=== PATIENT | female | born 1935 | race Caucasian/White ===

== ENCOUNTER 2019-09-19 09:17 | Emergency (ER) | payer MEDICARE, SELFPAY ==
[2019-09-19 09:23] VITALS: BP 145/104; PULSE 84; RESP 18; TEMP 36.6; O2SAT 97; BMI 18.6
[2019-09-19 09:32] VITALS: BP 179/105; PULSE 93; RESP 18; O2SAT 98
--- NOTE | 2019-09-19 09:34 | W.ED.BACK ---
HPI - Back Pain/Injury General: Chief Complaint: Back Pain/Injury Stated Complaint: back pain/post fall 10days ago Time Seen by Provider: 09/19/19 09:18 Source: patient Mode of arrival: EMS Limitations: no limitations History of Present Illness: HPI Narrative: Patient is an 84-year-old female who presents to ED today with complaints of lower back and right hip pain. According to EMS report patient 10 days ago sat down really hard onto the toilet and began having pain in her lower back and right hip. She reportedly had continued to be ambulatory with the help of a walker but EMS states today she was no longer able to ambulate. Patient has home health that has been caring for patient. Patient tells me she has not had any new injury or trauma since the initial fall. She denies numbness, tingling, loss of sensation to her legs. She denies any other complaints at this time. MD elicited complaint: back pain Pertinent past history: recent trauma Onset (ago): day(s) Timing: constant Severity: severe Similar Symptoms Previously: No Location: lumbar spine and right lower back (R hip) Radiation: none Exacerbating factors: movement and walking Relieving factors: none Associated symptoms: Reports no associated symptoms; Deny chills, fatigue or fever(s) Work related injury: No Review of Systems Const: Denies: fever(s), chills, body aches, fatigue or malaise Card: Denies: chest pain, palpitations, swelling of feet/ankles or lightheadedness Resp: Denies: dyspnea, productive cough, non-productive cough or chest congestion : Denies: flank pain Musc: Reports: back pain, extremity pain (R LE) and joint pain (R hip); Denies: neck pain Neuro: Denies: numbness in extremities, weakness in extremities or sensory changes Physical Exam Const: COMMON NORMALS: average body habitus, patient oriented x3, healthy appearing, alert and well nourished GENERAL APPEARANCE: cooperative and in distress (appears uncomfortable ) HENMT: COMMON NORMALS: normocephalic and atraumatic HEAD & SCALP: normocephalic and atraumatic Chest: COMMONS NORMALS: normal inspection of the chest and normal palpation of entire chest wall Resp: COMMON NORMALS: normal respiratory effort and clear to auscultation bilaterally AUSCULTATION: clear to auscultation bilaterally Cardio: COMMON NORMALS: regular rate and regular rhythm RATE: regular rate RHYTHM: regular rhythm Back/Pelvis: THORACIC SPINE/UPPER BACK: Yes normal to inspection, No thoracic spinal tenderness and No paraspinal muscle tenderness LUMBAR SPINE/LOWER BACK: Yes pain with ROM and Yes lumbar spinal tenderness (mid to lower L spine) SACROILIAC JOINTS: Yes SI joint(s) abnormal (TTP R SI) Extremity: COMMON NORMALS: full ROM, capillary refill normal, no joint enlargement, no clubbing, cyanosis or edema, no calf tenderness and no pedal edema GENERAL: Yes normal exam except as noted Neuro: COMMON NORMALS: patient oriented x3, moves all extremities, no focal motor deficits and no sensory deficits noted SENSORIUM/ORIENTATION: Yes alert GAIT: Yes Unable to assess gait Skin: COMMON NORMALS: no rashes or lesions noted GENERAL SKIN EXAM: no rashes or lesions noted Course Vital Signs: Vital signs: Vital Signs Temperature 98 F 09/19/19 09:23 Pulse Rate 76 09/19/19 11:09 Respiratory Rate 18 09/19/19 11:09 Blood Pressure 141/75 09/19/19 11:09 Pulse Oximetry 100 09/19/19 11:09 MDM - Back Pain/Injury MDM Narrative: Medical decision making narrative: Pt reports pain improved. She will be fitted for TLSO brace by PT. Patient will be discharged home with pain meds and recommended she followup with PCP. Medical Records: Medical records narrative: Patient feeling better with pain medications given here. On patient's imaging she has a T12 compression fracture. There was also a questionable S1 fracture although CT reports this could just be bony sclerosis. Spoke with Dr. Cruz who stated patient would just need PCP follow-up. She was fitted for a TLSO brace for physical therapy. She was ambulatory here in the emergency department. Imaging Data^: CT lumbar: Radiologist's impression: [address] [address] [address] Scan Report Signed Patient: Radha Hubbard Unit #: [id number] : 1935 Age/Sex: 84 / F ADM Date: 09/19/19 Loc: ER Room/Bed: Attending Dr: Ordering Provider/Ordering MD: Janiya Pedroza Date of Service: 09/19/19 Procedure(s): CT lumbar spine wo con* [id number] Accession Number(s): [id number] Report Number: [id number] PROCEDURE INFORMATION: Exam: CT Lumbar Spine Without Contrast Exam date and time: 09/19/2019 9:40 AM Age: 84 years old Clinical indication: Injury or trauma; Initial encounter; Blunt trauma (contusions or hematomas); Patient HX: Fall ten days ago. C/O severe low back pain. ; Additional info: Back pain; Trauma; Trouble ambulating TECHNIQUE: Imaging protocol: Computed tomography images of the lumbar spine without contrast. Radiation optimization: All CT scans at this facility use at least one of these dose optimization techniques: automated exposure control; mA and/or kV adjustment per patient size (includes targeted exams where dose is matched to clinical indication); or iterative reconstruction. COMPARISON: No relevant prior studies available. RADIATION DOSE METRICS: Total DLP (mGy-cm): 4401.92 FINDINGS: Vertebrae: No spondylolisthesis No pars defect. Multi-level facet hypertrophic changes Mild compression fracture involving the inferior endplate of the T12 vertebral body both within the anterior and middle columns. Bony sclerosis mid aspect of the S1 segment. Possible minimally displaced fracture. No significant soft tissue swelling. Consider MRI if indicated. Discs/Spinal canal/Neural foramina: Severe diffuse degenerative disc disease reflected as severe decrease in disc space height and anterior endplate osteophytosis. Multilevel annular disc bulge and/or disc protrusions. No appreciable narrowing of the central canal. Soft tissues: See Vertebrae finding. CT/CT lumbar spine wo con* [id number] IMPRESSION: 1. Severe diffuse degenerative disc disease. 2. Mild compression fracture involving the inferior endplate of the T12 vertebral body both within the anterior and middle columns. 3. Bony sclerosis mid aspect of the S1 segment. Possible minimally displaced fracture. No significant soft tissue swelling. Consider MRI if indicated. 4. Multilevel annular disc bulge and/or disc protrusions. No appreciable narrowing of the central canal. Radiation Dose CTDIVOL = (mGy): DLP = 4401.92 (mGy-cm) Dictated By: Fermin Morales MD Signed By: Fermin Morales MD Signed Date/Time: 09/19/19 1034 DD/ 1033 XR R hip/pelvis: Radiologist's impression: [facility] [address] [place] [address] XRay Report Signed Patient: Uma Hubbard #: [id number] : 1936Acct#:[id number] Age/Sex: 84 / FADM Date: 09/19/19 Loc: ERRoom/Bed: Attending Dr: Ordering Provider/Ordering MD: Janiya Pedroza Date of Service: 09/19/19 Procedure(s): XR hip RT 2-3V wo/w pel* [id number] Accession Number(s): [id number] Report Number: [id number] PROCEDURE INFORMATION: Exam: XR Right Hip with Pelvis when Performed Exam date and time: 09/19/2019 10:12 AM Age: 84 years old Clinical indication: Injury or trauma; Fall; Initial encounter; Blunt trauma (contusions or hematomas); Right; Hip; Injury date: Last week; Additional info: Pain/trauma, fall TECHNIQUE: Imaging protocol: XR Right hip with pelvis when performed. Views: 1 view. COMPARISON: No relevant prior studies available. FINDINGS: Bones/joints: Mild degenerative changes within the hip including mild joint space narrowing and early osteophyte formation. No fracture. The trabecular stress markings normal. osseous structures of the pelvis without an acute process. rami are intact. Sacroiliac joints without separation/diastases/fracture. Iliac bones unremarkable/noncontributory Soft tissues: Unremarkable. XR/XR hip RT 2-3V wo/w pel* [id number] IMPRESSION: Mild to moderate degenerative changes within the hip. Dictated By:Fermin Morales MD Signed By:Fermin Morales MDSigned Date/Time:09/19/19 1149 DD/ 1148 Discharge Plan Discharge Patient Disposition: Home, Self-Care Clinical Impression: Closed wedge compression fracture of T12 vertebra Qualifiers: Encounter type: initial encounter Qualified Code(s): S22.080A - Wedge compression fracture of T11-T12 vertebra, initial encounter for closed fracture Condition: Stable Prescriptions: New hydrocodone-acetaminophen 5-325 mg tablet 1 tab PO Q4H PRN (Reason: pain) Qty: 15 RF: 0 No Action latanoprost 0.005 % drops 1 drp ophthalmic (eye) BEDTIME RF: 0 lisinopril 20 mg tablet 20 mg PO DAILY RF: 0 Synthroid 88 mcg tablet 88 mcg PO DAILY RF: 0 Referrals: Makayla Lyle MD [Primary Care Provider] - Activity Restrictions/Additional Instructions: You need to contact Dr. Lyle and set up follow up appointment as soon as possible. You need to wear back brace and use walker at all times. Coding Level of Care Code ED Drapery Maker for [facility]g Fwd Exam Comprehensive
[2019-09-19 09:58] VITALS: RESP 18; O2SAT 100
[2019-09-19] MEDS: morphine 4 mg/mL SDV 1 mL IM (09:58)
[2019-09-19] MEDS: orphenadrine 30 mg/mL Inj 2 mL 60 MG IM (09:59)
[2019-09-19 11:09] VITALS: BP 141/75; PULSE 76; RESP 18; O2SAT 100
[2019-09-19 12:44] VITALS: BP 134/84; PULSE 78; RESP 18; O2SAT 98
== END 2019-09-19 13:24 | disposition home or self-care (01) ==
PROVIDERS: Emergency Provider Physician Assistant; PCP Family Medicine
DX: S22.080A Wedge compression fracture of T11-T12 vertebra, initial encounter for closed fracture (principal); X58.XXXA Exposure to other specified factors, initial encounter
CPT/HCPCS: 12345; 72131; 73502; 96372; 97161; 97760; 99283; J2270; J2360; L0456

== ENCOUNTER 2019-10-15 15:32 | Outpatient (CLI) | payer MEDICARE, SELFPAY ==
--- NOTE | 2019-10-15 15:42 | XR_ITS ---
WS: [id number] SCREENING DEXA SCAN [place] CLINICAL INFORMATION: POST MENOPAUSAL COMPARISON: None. FINDINGS: The L1-L4 bone mineral density measures 1.025 g/cm2. This corresponds to a T score score of -1.3 and Z score of 1.0. Left femoral neck bone mineral density measures 0.730 g/cm2. This corresponds to a T score of -2.2 an d Z score of 0.3. Right femoral neck bone mineral density measures 0.706 g/cm2. This corresponds to a T score -2.4of an d Z score of 0.1. Mean femoral neck bone mineral density measures 0.718 g/cm2. This corresponds to a T score of -2.3 an d Z score of 0.2. XR/XR DEXA axial skeleton* [id number] IMPRESSION: Osteoporosis Patient's FRAX calculated 10 year probability for major osteoporotic fracture i s 30.1 % and osteoporotic hip fracture is 11.9%.
== END 2019-10-15 15:33 | disposition home or self-care (01) ==
PROVIDERS: PCP Family Medicine; Visit Provider Family Medicine
DX: Z78.0 Asymptomatic menopausal state (principal); M81.0 Age-related osteoporosis without current pathological fracture
CPT/HCPCS: 77080

== ENCOUNTER → 2019-11-13 10:17 | Outpatient (BNVA) | payer MEDICARE, SELFPAY | PROVIDERS: PCP Family Medicine; Visit Provider Podiatrist Foot & Ankle Surgery | DX: M79.673 Pain in unspecified foot (principal); M85.872 Other specified disorders of bone density and structure, left ankle and foot; M85.871 Other specified disorders of bone density and structure, right ankle and foot; M19.072 Primary osteoarthritis, left ankle and foot; M19.071 Primary osteoarthritis, right ankle and foot; M20.12 Hallux valgus (acquired), left foot; M20.11 Hallux valgus (acquired), right foot; M20.42 Other hammer toe(s) (acquired), left foot; M20.41 Other hammer toe(s) (acquired), right foot | CPT/HCPCS: 73630 ==

== ENCOUNTER 2020-03-04 15:04 | Emergency (ER) | payer MEDICARE, SELFPAY ==
[2020-03-04 15:15] VITALS: BP 152/82; PULSE 107; RESP 24; TEMP 36.8; O2SAT 97; BMI 19.3
--- NOTE | 2020-03-04 15:33 | ED_ITS ---
HPI - Fall General: Chief Complaint: Fall Stated Complaint: GROUND LEVEL FALL, LUMBAR AND TAILBONE PAIN Time Seen by Provider: 03/04/20 15:26 History of Present Illness: HPI Narrative: 84 year old female in after a fall and some confusion at home. The patient usually lives at home by herself and family (including cousin who is here) check in on her. Today she was found 1/2 dressed on the floor and unable to get up and complaining of back pain. The patient was acting unusual according to the family. Associated symptoms-after fall: Denies abdominal pain or chest pain Review of Systems General: Reports: 10 or more systems reviewed and unremarkable except in HPI and below Const: Denies: fever(s) or chills Card: Denies: chest pain Resp: Denies: dyspnea GI: Denies: abdominal pain Musc: Reports: back pain PFS ED PFSH: Social History Smoking and tobacco status: never smoked Alcohol intake: never Physical Exam Const: COMMON NORMALS: no acute distress and alert EXAM LIMITATIONS: altered mental status HENMT: COMMON NORMALS: normocephalic HEAD & SCALP: normal to inspection and normocephalic Resp: COMMON NORMALS: normal respiratory effort and clear to auscultation bilaterally EFFORT & INSPECTION: Yes able to speak in complete sentences AUSCULTATION: clear to auscultation bilaterally Cardio: COMMON NORMALS: regular rate and regular rhythm RATE: regular rate RHYTHM: regular rhythm GI: COMMON NORMALS: Normal to inspection, nondistended, normoactive bowel sounds present and Soft to palpation INSPECTION: Yes normal to inspection AUSCULTATION: Yes normoactive bowel sounds PALPATION: Yes Soft to palpation : COMMON NORMALS: Yes no CVA tenderness BLADDER/KIDNEY EXAM: Yes no CVA tenderness Back/Pelvis: COMMON NORMALS: no CVA tenderness and thoracic and lumbar spine normal to inspection; negative for no thoracic nor lumbar tenderness Extremity: COMMON NORMALS: normal to inspection GENERAL: Yes normal exam except as noted Neuro: COMMON NORMALS: moves all extremities and no focal motor deficits SENSORIUM/ORIENTATION: Yes alert Skin: COMMON NORMALS: no rashes or lesions noted GENERAL SKIN EXAM: no rashes or lesions noted Course Vital Signs: Vital signs: Vital Signs Temperature 98.5 F 03/04/20 16:19 Pulse Rate 109 H 03/04/20 17:00 Respiratory Rate 18 03/04/20 17:00 Blood Pressure 110/87 03/04/20 17:00 Pulse Oximetry 100 03/04/20 17:00 MDM - Fall MDM Narrative: Medical decision making narrative: 84 year old in with fall complaining of low back pain now acting unusual according to family. Will xray pelvis and lumbar spine. Expand work up to include head CT and other work up for altered mental status. Labs showed some mild dehydration and rhabdo. Fluids given. CT pending if negative will be discharged home. CXR suboptimal study but no acute. Care discussed with family. She will go to her cousins [facility]. Lab Data: Labs: Lab Results 03/04/20 03/04/20 Range/Units 16:37 16:37 WBC 9.7 (4.0-10.0) 10^3/ uL RBC 3.78 L (4.1-5.3) 10^6/u L Hgb 10.0 L (11.5-15.3) g/dL Hct 30.9 L (37.0-47.0) % MCV 81.7 (81-99) fL MCH 26.5 L (28.0-34.0) pg MCHC 32.4 (30.0-36.0) g/dL RDW 13.3 (12.1-15.1) % Plt Count 410 H (130-400) 10^3/c mm MPV 8.8 (7.4-10.4) fL Neut % (Auto) 80.6 % Lymph % (Auto) 12.3 % [place] % (Auto) 5.9 % Eos % (Auto) 0.2 % Baso % (Auto) 0.5 % Neut # (Auto) 7.81 H (1.8-7.7) 10^3/u L Lymph # (Auto) 1.2 (0.8-4.8) 10^3/u L [place] # (Auto) 0.6 (0.2-0.9) 10^3/u L Eos # (Auto) 0.0 (0.0-0.8) 10^3/u L Baso # (Auto) 0.1 (0.0-0.1) 10^3/u L Nucleated RBC % (a uto) 0 % Nucleated RBCs # 0.0 /100WBC Sodium 132 L (136-145) mmol/L Potassium 3.7 (3.5-5.1) mmol/L Chloride 97 L (98-107) mmol/L Carbon Dioxide 24 (22-29) mmol/L Anion Gap 14.7 (5-19) BUN 29 H (8-23) mg/dL Creatinine 0.8 (0.5-0.9) mg/dL GFR Calculation Not Reportable Glucose 137 H (65-115) mg/dL Calculated Osmolal ity 282 L (285-295) mOsm/k g Calcium 9.7 (8.5-10.5) mg/dL Total Bilirubin 0.4 (0.15-1.2) mg/dL AST 25 (0-32) U/L ALT 16 (0-33) U/L Alkaline Phosphata se 84 (35-105) IU/L Creatine Kinase 446 H* (26-192) U/L Total Protein 6.7 (6.6-8.7) g/dL Albumin 3.2 L (3.5-5.2) g/dL Globulin 3.5 (1.3-4.6) g/dL Discharge Plan Discharge Patient Disposition: Home Clinical Impression: Acute dehydration Rhabdomyolysis Qualifiers: Rhabdomyolysis type: traumatic Encounter type: initial encounter Qualified Code(s): T79.6XXA - Traumatic ischemia of muscle, initial encounter Accidental fall Qualifiers: Encounter type: initial encounter Qualified Code(s): W19.XXXA - Unspecified fall, initial encounter Condition: Stable Prescriptions: No Action lisinopril-hydrochlorothiazide 20-12.5 mg tablet 1 tab PO BID RF: 0 latanoprost 0.005 % drops 1 drp ophthalmic (eye) BEDTIME RF: 0 levothyroxine [Synthroid] 88 mcg tablet 88 mcg PO DAILY RF: 0 Discharge Orders: Discharge ED (Routine); Ordered 03/04/20 Ordered By: Mark White Referrals: Makayla Lyle MD [Primary Care Provider] - Discharge Diet: Usual diet Discharge Activity: Resume usual activity Patient Instructions: Fall Prevention for Older Adults (ED) Coding Level of Care Code ED Technical Business Systems Analyst for [facility] Fwd Exam Comprehensive
--- NOTE | 2020-03-04 15:33 | XRR_ITS ---
PROCEDURE INFORMATION: Exam: XR Pelvis Exam date and time: 03/04/2020 3:42 PM Age: 84 years old Clinical indication: Pain and injury or trauma; Fall; Blunt trauma (contusions or hematomas); Bilateral; Pelvic region; Pelvic pain; Additional info: Fall / pain TECHNIQUE: Imaging protocol: XR pelvis. Views: 1 or 2 view. COMPARISON: CR XR hip RT 2-3V wo/w pel* [id number] 09/19/2019 9:56 AM FINDINGS: Bones/joints: Unremarkable. No acute fracture. Soft tissues: Unremarkable. XR/XR pelvis 1-2V* [id number] IMPRESSION: No acute findings.
--- NOTE | 2020-03-04 15:33 | XRR_ITS ---
PROCEDURE INFORMATION: Exam: XR Lumbosacral Spine, 2 or 3 Views Exam date and time: 03/04/2020 3:42 PM Age: 84 years old Clinical indication: Injury or trauma; Fall; Blunt trauma (contusions or hematomas) TECHNIQUE: Imaging protocol: XR of the lumbosacral spine, 2 or 3 views. COMPARISON: CT lumbar spine wo con* [id number] 09/19/2019 9:39 AM FINDINGS: Bones/joints: There is moderate osteoarthritis with intervertebral disc space narrowing of multiple levels. No acute fracture. Normal alignment. Soft tissues: Unremarkable. XR/XR lumbar spine 2-3V* [id number] IMPRESSION: 1. Moderate osteoarthritis 2. Otherwise No acute findings.
[2020-03-04 16:19] VITALS: BP 141/70; PULSE 108; RESP 20; TEMP 36.9; O2SAT 99
--- NOTE | 2020-03-04 16:49 | CTR_ITS ---
PROCEDURE INFORMATION: Exam: CT Head Without Contrast Exam date and time: 03/04/2020 5:04 PM Age: 84 years old Clinical indication: Injury or trauma; Fall; Blunt trauma (contusions or hematomas); Consciousness not specified; Patient HX: Best images. PT does not stay still. ; Additional info: Confusion, fall TECHNIQUE: Imaging protocol: Computed tomography of the head without contrast. Radiation optimization: All CT scans at this facility use at least one of these dose optimization techniques: automated exposure control; mA and/or kV adjustment per patient size (includes targeted exams where dose is matched to clinical indication); or iterative reconstruction. COMPARISON: No relevant prior studies available. RADIATION DOSE METRICS: Total DLP (mGy-cm): 1302.22 FINDINGS: Brain: No CT evidence for acute ischemia, mass or hemorrhage. Periventricular microangiopathy. Sulcal widening is an age related change. Cerebral ventricles: Mildly increased ventricular size due to white matter volume loss. Bones/joints: Unremarkable. No acute fracture. Paranasal sinuses: Mild mucosal thickening in the paranasal sinuses without fluid levels. Mastoid air cells: Visualized mastoid air cells are well aerated. Soft tissues: Unremarkable. CT/CT head wo con* [id number] IMPRESSION: 1. No acute intracranial findings. 2. Microangiopathy and age related changes. Radiation Dose CTDIVOL = (mGy): DLP = 1302.22 (mGy-cm)
--- NOTE | 2020-03-04 16:55 | XRR_ITS ---
PROCEDURE INFORMATION: Exam: XR Chest, 1 View Exam date and time: 03/04/2020 5:06 PM Age: 84 years old Clinical indication: Injury or trauma; Fall; Blunt trauma (contusions or hematomas); Injury date: 03/03/20; Additional info: Confusion TECHNIQUE: Imaging protocol: XR of the chest Views: 1 view. COMPARISON: No relevant prior studies available. FINDINGS: Lungs: Unremarkable. No consolidation. Pleural space: Unremarkable. No pleural effusion. No pneumothorax. Heart/Mediastinum: Unremarkable. No cardiomegaly. Bones/joints: Unremarkable. XR/XR chest 1V portable [id number] IMPRESSION: No acute findings.
[2020-03-04 17:00] VITALS: BP 110/87; PULSE 109; RESP 18; O2SAT 100
[2020-03-04 17:19] LABS: Basophils # 0.1 10^3/uL (0.0-0.1); Basophils % 0.5 %; Eosinophils % 0.2 %; Hematocrit 30.9 % (37.0-47.0); Lymphocytes # 1.2 10^3/uL (0.8-4.8); Lymphocytes % 12.3 %; Mean Corpuscular HGB Conc 32.4 g/dL (30.0-36.0); Mean Corpuscular Hemoglobin 26.5 pg (28.0-34.0); Mean Corpuscular Volume 81.7 fL (81-99); Mean Platelet Volume 8.8 fL (7.4-10.4); Monocytes # 0.6 10^3/uL (0.2-0.9); Monocytes % 5.9 %; Neutrophils # 7.81 10^3/uL (1.8-7.7); Neutrophils % 80.6 %; Nucleated Red Blood Cells % 0 %; Platelet Count 410 10^3/cmm (130-400); Red Blood Count 3.78 10^6/uL (4.1-5.3); Red Cell Distribution Width 13.3 % (12.1-15.1); White Blood Count 9.7 10^3/uL (4.0-10.0)
[2020-03-04] MEDS: LORazepam 2 mg/mL INJ 1 mL 1 MG IVP (17:24)
[2020-03-04 17:30] LABS: Alanine Aminotransferase 16 U/L (0-33); Albumin Level 3.2 g/dL (3.5-5.2); Alkaline Phosphatase 84 IU/L (35-105); Anion Gap 14.7 (5-19); Aspartate Amino Transferase 25 U/L (0-32); Blood Urea Nitrogen 29 mg/dL (8-23); Calcium 9.7 mg/dL (8.5-10.5); Carbon Dioxide 24 mmol/L (22-29); Chloride 97 mmol/L (98-107); Globulin 3.5 g/dL (1.3-4.6); Glucose 137 mg/dL (65-115); Osmolality Calculated 282 mOsm/kg (285-295); Potassium 3.7 mmol/L (3.5-5.1); Sodium 132 mmol/L (136-145); Total Bilirubin 0.4 mg/dL (0.15-1.2); Total Protein 6.7 g/dL (6.6-8.7)
[2020-03-04 17:34] LABS: Creatine Phosphokinase 446 U/L (26-192)
[2020-03-04] MEDS: sodium chloride 0.9% 1,000 ML 999 ML IV (17:49)
[2020-03-04 18:27] VITALS: BP 170/82; PULSE 97; RESP 18; O2SAT 100
[2020-03-04 18:34] LABS: Urine Appearance Clear (CLEAR); Urine Color Yellow (Yellow)
[2020-03-04 18:35] LABS: Add Urine Microscopic? YES; Bilirubin Urine Neg (Negative); Blood Urine 2+ (Negative); Glucose Urine UA Norm (Normal); Ketones Urine Negative (Negative); Leukocyte Esterase Urine Negative (Negative); Nitrate Urine Negative (Negative); Protein Urine Neg (Negative); Sulfosalicylic Acid Urine Negative (Negative); Urobilinogen Urine 1 mg/dL (Negative); pH Urine 8 (5-7)
[2020-03-04 18:36] LABS: Bacteria Urine 1+ /hpf; Squamous Epithelial Cell Urine 0-4 /hpf (0-5); WBC Urine 80-100 /hpf (0-5)
[2020-03-04 18:38] LABS: Add Urine Culture? Yes
[2020-03-04 19:07] VITALS: BP 152/98; PULSE 95; RESP 20; O2SAT 100
== END 2020-03-04 19:08 | disposition home or self-care (01) ==
PROVIDERS: Emergency Provider Family Medicine; PCP Family Medicine
DX: T79.6XXA Traumatic ischemia of muscle, initial encounter (principal); E86.0 Dehydration; W19.XXXA Unspecified fall, initial encounter
CPT/HCPCS: 12345; 70450; 71045; 72100; 72170; 80053; 81001; 82550; 85025; 87086; 96361; 96374; 99282; 99283; J2060; J7030

== ENCOUNTER 2021-08-10 10:58 | Inpatient (IN) | payer MEDICARE, SELFPAY ==
--- NOTE | 2021-08-10 11:01 | CTR_ITS ---
PROCEDURE INFORMATION: Exam: CT Head Without Contrast Exam date and time: 08/10/2021 11:40 AM Age: 86 years old Clinical indication: Injury or trauma; Fall; Blunt trauma (contusions or hematomas); Altered mental status/memory loss; Additional info: AMS TECHNIQUE: Imaging protocol: Computed tomography of the head without contrast. Radiation optimization: All CT scans at this facility use at least one of these dose optimization techniques: automated exposure control; mA and/or kV adjustment per patient size (includes targeted exams where dose is matched to clinical indication); or iterative reconstruction. COMPARISON: CT head wo con* [id number] 03/04/2020 5:12 PM RADIATION DOSE METRICS: Total DLP (mGy-cm): 1873.17 FINDINGS: Brain: There is diffuse cerebral atrophy and chronic microvascular white matter disease. There is no acute intracranial hemorrhage. Cerebral ventricles: There is mild ex vacuo dilation of the lateral ventricles. The basal cisterns are unremarkable. Paranasal sinuses: The paranasal sinuses are clear. Mastoid air cells: The mastoid air cells are clear. Bones/joints: The calvarium is intact. Soft tissues: The visible extracranial soft tissues are unremarkable. CT/CT head wo con* [id number] IMPRESSION: No acute intracranial abnormality.
--- NOTE | 2021-08-10 11:01 | XRR_ITS ---
PROCEDURE INFORMATION: Exam: XR Chest Exam date and time: 08/10/2021 11:15 AM Age: 86 years old Clinical indication: Other: AMS; Additional info: Found down TECHNIQUE: Imaging protocol: XR of the chest. Views: 1 view. COMPARISON: CR XR chest 1V portable [id number] 03/04/2020 5:22 PM FINDINGS: Lungs: There is left apical subpleural scarring. There is no consolidation. Pleural spaces: There is no pleural effusion or pneumothorax. Heart/Mediastinum: Cardiomediastinal contours are unremarkable. Bones/joints: Bones are unremarkable. XR/XR chest 1V portable [id number] IMPRESSION: No acute findings.
--- NOTE | 2021-08-10 11:02 | ECG_ITS ---
[facility] Test Date: 2021-08-10 Pat Name: Radha Hubbard Department: Room: Gender: Female Ore Charger: : 1935 Requested By: Ron Palafox Order Number: [id number] Gretchen MD: Shaji Atkinson M.D. Measurements Intervals [place] Rate: 90 P: 76 DC: 135 QRS: 72 QRSD: 81 T: 62 QT: 361 QTc: 443 Interpretive Statements SINUS RHYTHM POSSIBLE LEFT ATRIAL ENLARGEMENT [-0.1mV P-WAVE IN V1/V2] No previous ECG available for comparison Electronically Signed On 08-10-2021 18:28:38 CDT by Shaji Atkinson M.D. [id number]
--- NOTE | 2021-08-10 11:11 | W.ED.GENADLT ---
HPI - General Adult General: Chief complaint: Fall Stated complaint: FALL/ FOUND DOWN FOR A WHILE Time Seen by Provider: 08/10/21 11:01 History of Present Illness: Patient is an 86-year-old female with a history of hypothyroidism, hypertension, CHF who presents the emergency room after patient was found down for an unknown duration. Patient's functionally independent lives at home by herself walks with a walker. However, it is unclear entirely when patient has fallen. Earlier today, patient family found patient on the ground covered in the urine. EMS was called and patient was brought to the emergency room. On arrival patient is AAO x2 (self and year). Patient reports she otherwise has no other focal complaints. Patient reports that she was down on the ground for the last few days. Patient does not remember how long she was down for. Patient has no other focal complaints including chest pain, shortness breath, palpitation, nausea/vomiting, diarrhea, melena/hematochezia, complaints or abdominal pain. Onset:unknown Duration:ongoing Location:home Severity:severe Associated symptoms: Reports malaise; Deny chest pain, dyspnea, nausea, rash, palpitations or vomiting Review of Systems Const: Reports: malaise; Denies: fever(s) or chills Eyes: Denies: change in vision ENMT: Denies: mouth pain Card: Denies: chest pain or palpitations Resp: Denies: dyspnea or non-productive cough GI: Denies: abdominal pain, nausea, vomiting or diarrhea : Denies: dysuria Musc: Denies: extremity pain Skin/Breast: Denies: rash or new lesions Neuro: Denies: weakness in extremities Psych: Reports: other (Normal mood) Claude/Lymph: Denies: easy bruising PFSH ED PFSH: Medical History (Updated 08/10/21 @ 13:34 by Ron Palafox MD) CHF exacerbation Hypertension Hypothyroidism Social History (Updated 08/10/21 @ 11:13 by Ron Palafox MD) Smoking and tobacco status: never smoked Alcohol intake: never Substance/Drug Use: never Physical Exam Const: COMMON NORMALS: alert HENMT: COMMON NORMALS: atraumatic HEAD & SCALP: atraumatic MOUTH: moist mucous membranes abnormal Eye: COMMON NORMALS: EOMs intact bilaterally and conjunctivae normal CONJUNCTIVA: Yes conjunctivae normal Neck/C-Spine: COMMON NORMALS: full ROM and supple Resp: COMMON NORMALS: normal respiratory effort and clear to auscultation bilaterally AUSCULTATION: clear to auscultation bilaterally Cardio: COMMON NORMALS: regular rate RATE: regular rate GI: COMMON NORMALS: Soft to palpation and non-tender PALPATION: Yes Soft to palpation OTHER: No focal TTP. NO guarding rebound, guarding, rigidity. No CVA tenderness to percussion. Neg Shah/Neg McBurney's point tenderness, no suprabupic tenderness to palpation. Back/Pelvis: OTHER: +no decub ulcers Extremity: COMMON NORMALS: full ROM Neuro: SENSORIUM/ORIENTATION: Yes alert MOTOR EXAM: No Abnormal motor strength present and Other motor observations present (no focal motor deficits) OTHER: AAO x2, confused, following commands, moving all extremities, strength grossly intact in all extremities, cranial nerves II through XII intact Psych: COMMON NORMALS: speech normal SPEECH: Yes normal speech MOOD & AFFECT: Yes euthymic mood Skin: NARRATIVE SKIN EXAM: L toe amputations (site healed) +goose bumps Course Vital Signs: Vital signs: Vital Signs Temperature 96.4 F L 08/10/21 11:15 Pulse Rate 84 08/10/21 11:15 Respiratory Rate 18 08/10/21 11:15 Blood Pressure 125/64 08/10/21 11:15 Pulse Oximetry 100 08/10/21 11:15 [facility] - General Adult Medical Decision Making Patient is an 86-year-old female with history of hypertension, hypothyroidism, CHF presenting to the emergency room for evaluation after being found down for unknown duration of time. On physical exam, patient is hemodynamically stable, neuro exam with shivering. Lab work-up showed a creatinine of 5.8 up from baseline 0.8. BUN of 132 which could explain patient's confusion. CK of 573. proBNP appears to be elevated at 2760. Patient will receive 1 L fluid. Case was discussed with Dr. Kinney from nephrology who will follow patient. Ibarra is placed. Disposition: admission Lab Data : 08/10/21 11:00 08/10/21 12:38 Radiology Impressions Chest X-Ray 08/10/21 11:01 IMPRESSION: No acute findings. Head CT 08/10/21 11:01 IMPRESSION: No acute intracranial abnormality. Laboratory Results WBC 9.3 10^3/uL (4.0-10.0) 08/10/21 11:00 RBC 5.27 10^6/uL (4.1-5.3) 08/10/21 11:00 Hgb 14.7 g/dL (11.5-15.3) 08/10/21 11:00 Hct 46.0 % (37.0-47.0) 08/10/21 11:00 MCV 87.3 fl (81-99) 08/10/21 11:00 MCH 27.9 pg (28.0-34.0) L 08/10/21 11:00 MCHC 32.0 g/dL (30.0-36.0) 08/10/21 11:00 RDW 16.1 % (12.1-15.1) H 08/10/21 11:00 Plt Count 208 10^3/cmm (130-400) 08/10/21 11:00 MPV 10.4 fL (7.4-10.4) 08/10/21 11:00 Neut % (Auto) 83.3 % 08/10/21 11:00 Lymph % (Auto) 7.5 % 08/10/21 11:00 Merrick % (Auto) 8.5 % 08/10/21 11:00 Eos % (Auto) 0.0 % 08/10/21 11:00 Baso % (Auto) 0.1 % 08/10/21 11:00 Neut # (Auto) 7.73 10^3/uL (1.8-7.7) H 08/10/21 11:00 Lymph # (Auto) 0.7 10^3/uL (0.8-4.8) L 08/10/21 11:00 Merrick # (Auto) 0.8 10^3/uL (0.2-0.9) 08/10/21 11:00 Eos # (Auto) 0.0 10^3/uL (0.0-0.8) 08/10/21 11:00 Baso # (Auto) 0.0 10^3/uL (0.0-0.1) 08/10/21 11:00 Nucleated RBC % (auto) 0 % 08/10/21 11:00 Nucleated RBCs # 0.0 /100WBC 08/10/21 11:00 Sodium 140 mmol/L (136-145) 08/10/21 12:38 Potassium 4.7 mmol/L (3.5-5.1) 08/10/21 12:38 Chloride 101 mmol/L (98-107) 08/10/21 12:38 Carbon Dioxide 15 mmol/L (22-29) L 08/10/21 12:38 Anion Gap 28.7 (5-19) H 08/10/21 12:38 BUN 132 mg/dL (8-23) H* D 08/10/21 12:38 Creatinine 5.8 mg/dL (0.5-0.9) H* 08/10/21 12:38 GFR Calculation Not Reportable 08/10/21 12:38 Glucose 99 mg/dL (65-115) 08/10/21 12:38 Calculated Osmolality 333 mOsm/kg (285-295) H 08/10/21 12:38 Lactate 1.5 mmol/L (0.5-2.2) 08/10/21 12:38 Calcium 8.4 mg/dL (8.5-10.5) L 08/10/21 12:38 Total Bilirubin 0.4 mg/dL (0.15-1.2) 08/10/21 12:38 AST 28 U/L (0-32) 08/10/21 12:38 ALT 13 U/L (0-33) 08/10/21 12:38 Alkaline Phosphatase 54 IU/L (35-105) 08/10/21 12:38 Creatine Kinase 573 U/L (26-192) H* 08/10/21 12:38 NT-Pro-B Natriuret Pep 2760 pg/mL (0-450) H 08/10/21 12:38 Total Protein 7.0 g/dL (6.6-8.7) 08/10/21 12:38 Albumin 3.7 g/dL (3.5-5.2) 08/10/21 12:38 Globulin 3.3 g/dL (1.3-4.6) 08/10/21 12:38 Lipase 517 U/L (13-60) H 08/10/21 12:38 TSH 1.21 uIU/mL (0.27-4.20) 08/10/21 12:38 Free T4 0.82 ng/dL (0.82-1.77) 08/10/21 12:38 Urine Color Yellow (Yellow) 08/10/21 13:05 Urine Appearance Clear (CLEAR) 08/10/21 13:05 Urine pH 5 (5-7) 08/10/21 13:05 Ur Specific Jonancy 1.020 (1.005-1.030) 08/10/21 13:05 Urine Protein Trace (Negative) 08/10/21 13:05 Urine Glucose (UA) 1+ (Normal) H 08/10/21 13:05 Urine Ketones 1+ (Negative) H 08/10/21 13:05 Urine Blood 3+ (Negative) H 08/10/21 13:05 Urine Nitrate Negative (Negative) 08/10/21 13:05 Urine Bilirubin Neg (Negative) 08/10/21 13:05 Urine Urobilinogen Norm mg/dL (Negative) 08/10/21 13:05 Ur Leukocyte Esterase Negative (Negative) 08/10/21 13:05 Amorphous Sediment Not Reportable 08/10/21 13:05 Imaging Data Other Imaging: Radiologist's impression: [employer] [address] [address] Scan Report Signed Patient: Radha Hubbard Unit #: [id number] : 1935 Age/Sex: 86 / F ADM Date: 08/10/21 Loc: ER Room/Bed: Attending Dr: Ordering Provider/Ordering MD: Ron Palafox MD Date of Service: 08/10/21 Procedure(s): CT head wo con* [id number] Accession Number(s): [id number] Report Number: [id number] PROCEDURE INFORMATION: Exam: CT Head Without Contrast Exam date and time: 08/10/2021 11:40 AM Age: 86 years old Clinical indication: Injury or trauma; Fall; Blunt trauma (contusions or hematomas); Altered mental status/memory loss; Additional info: AMS TECHNIQUE: Imaging protocol: Computed tomography of the head without contrast. Radiation optimization: All CT scans at this facility use at least one of these dose optimization techniques: automated exposure control; mA and/or kV adjustment per patient size (includes targeted exams where dose is matched to clinical indication); or iterative reconstruction. COMPARISON: CT head wo con* [id number] 03/04/2020 5:12 PM RADIATION DOSE METRICS: Total DLP (mGy-cm): 1873.17 FINDINGS: Brain: There is diffuse cerebral atrophy and chronic microvascular white matter disease. There is no acute intracranial hemorrhage. Cerebral ventricles: There is mild ex vacuo dilation of the lateral ventricles. The basal cisterns are unremarkable. Paranasal sinuses: The paranasal sinuses are clear. Mastoid air cells: The mastoid air cells are clear. Bones/joints: The calvarium is intact. Soft tissues: The visible extracranial soft tissues are unremarkable. CT/CT head wo con* [id number] IMPRESSION: No acute intracranial abnormality. ? Dictated By: Dino Collins MD Signed By: Dino Collins MD Signed Date/Time: 08/10/21 1210 DD/ [address] [address] XRay Report Signed Patient: Radha Hubbard Unit #: [id number] : 1935 Age/Sex: 86 / F ADM Date: 08/10/21 Loc: ER Room/Bed: Attending Dr: Ordering Provider/Ordering MD: Ron Palafox MD Date of Service: 08/10/21 Procedure(s): XR chest 1V portable [id number] Accession Number(s): [id number] Report Number: [id number] PROCEDURE INFORMATION: Exam: XR Chest Exam date and time: 08/10/2021 11:15 AM Age: 86 years old Clinical indication: Other: AMS; Additional info: Found down TECHNIQUE: Imaging protocol: XR of the chest. Views: 1 view. COMPARISON: CR XR chest 1V portable [id number] 03/04/2020 5:22 PM FINDINGS: Lungs: There is left apical subpleural scarring. There is no consolidation. Pleural spaces: There is no pleural effusion or pneumothorax. Heart/Mediastinum: Cardiomediastinal contours are unremarkable. Bones/joints: Bones are unremarkable. XR/XR chest 1V portable [id number] IMPRESSION: No acute findings. ? Dictated By: Dino Collins MD Signed By: Dino Collins MD Signed Date/Time: 08/10/21 1133 DD/ 1115 Discharge Plan Discharge Patient Disposition: Admitted As Inpatient Clinical Impression: Uremic encephalopathy, Dehydration, Elevated CPK Coding Level of Care Code ED Puff Ironer for Natachag Fwd Exam Comprehensive
[2021-08-10 11:15] VITALS: BP 125/64; PULSE 84; RESP 18; TEMP 35.8; O2SAT 100
[2021-08-10] MEDS: sodium chloride 0.9% 500 ML IV (11:22)
[2021-08-10 11:27] LABS: Basophils % 0.1 %; Hemoglobin 14.7 g/dL (11.5-15.3); Lymphocytes # 0.7 10^3/uL (0.8-4.8); Lymphocytes % 7.5 %; Mean Corpuscular Hemoglobin 27.9 pg (28.0-34.0); Mean Corpuscular Volume 87.3 fl (81-99); Mean Platelet Volume 10.4 fL (7.4-10.4); Monocytes # 0.8 10^3/uL (0.2-0.9); Monocytes % 8.5 %; Neutrophils # 7.73 10^3/uL (1.8-7.7); Neutrophils % 83.3 %; Nucleated Red Blood Cells % 0 %; Platelet Count 208 10^3/cmm (130-400); Red Blood Count 5.27 10^6/uL (4.1-5.3); Red Cell Distribution Width 16.1 % (12.1-15.1); White Blood Count 9.3 10^3/uL (4.0-10.0)
--- NOTE | 2021-08-10 13:02 | ECG_ITS ---
[facility] Test Date: 2021-08-10 Pat Name: Radha Hubbard Department: Room: Gender: Female Guide Excursion: : 1935 Requested By: Ron Palafox Order Number: [id number] Gretchen MD: Shaji Atkinson M.D. Measurements Intervals [place] Rate: 82 P: 73 [place]: 148 QRS: 68 QRSD: 74 T: 77 QT: 362 QTc: 424 Interpretive Statements SINUS RHYTHM NONSPECIFIC T-WAVE ABNORMALITY Compared to ECG 08/10/2021 11:10:23 T-wave abnormality now present Electronically Signed On 08-10-2021 18:33:23 CDT by Shaji Atkinson M.D. [email or web address] hospitalT[facility].[id number]
[2021-08-10 13:12] LABS: Lactate (Lactic Acid level) 1.5 mmol/L (0.5-2.2)
[2021-08-10 13:24] LABS: Alanine Aminotransferase 13 U/L (0-33); Albumin Level 3.7 g/dL (3.5-5.2); Alkaline Phosphatase 54 IU/L (35-105); Anion Gap 28.7 (5-19); Aspartate Amino Transferase 28 U/L (0-32); Calcium 8.4 mg/dL (8.5-10.5); Carbon Dioxide 15 mmol/L (22-29); Chloride 101 mmol/L (98-107); Free T4 Free Thyroxine 0.82 ng/dL (0.82-1.77); Globulin 3.3 g/dL (1.3-4.6); Glucose 99 mg/dL (65-115); NT Pro B Type Natriuretic Pept 2760 pg/mL (0-450); Potassium 4.7 mmol/L (3.5-5.1); Sodium 140 mmol/L (136-145); Thyroid Stimulating Hormone 1.21 uIU/mL (0.27-4.20); Total Bilirubin 0.4 mg/dL (0.15-1.2)
[2021-08-10 13:29] LABS: Urine Appearance Clear (CLEAR); Urine Color Yellow (Yellow)
[2021-08-10 13:30] LABS: Add Urine Microscopic? YES; Bilirubin Urine Neg (Negative); Blood Urine 3+ (Negative); Glucose Urine UA 1+ (Normal); Ketones Urine 1+ (Negative); Leukocyte Esterase Urine Negative (Negative); Nitrate Urine Negative (Negative); Protein Urine Trace (Negative); Urobilinogen Urine Norm (Negative); pH Urine 5 (5-7)
[2021-08-10 13:33] LABS: Blood Urea Nitrogen 132 mg/dL (8-23); Creatine Phosphokinase 573 U/L (26-192); Lipase 517 U/L (13-60); Osmolality Calculated 333 mOsm/kg (285-295)
[2021-08-10 13:41] VITALS: BP 169/91; PULSE 86; RESP 20; O2SAT 100
[2021-08-10 13:42] LABS: Add Urine Culture? No; Amorphous Sediment Urine 1+ /hpf; Bacteria Urine TRACE /hpf; RBC Urine 0-4 /hpf (0-2); WBC Urine 0-4 /hpf (0-5)
[2021-08-10 14:21] LABS: Ammonia 15 umol/L (11-51)
[2021-08-10 14:28] LABS: Troponin(5th) Baseline 59 ng/L (0-10)
--- NOTE | 2021-08-10 14:40 | PC.NURSE ---
Pt's cousin is at bedside, states she visits the patient every Monday and helps her with meds, dishes, etc. Reports that when she arrived at pt's house today, pt was on the floor. Pt has not taken any meds since last Monday. Also states she only had two cereal bowls on the kitchen counter, so appeared that she has not eaten much in the past week. Pt has a life line necklace, but it was hanging on her walker which was not within pt's reach on the floor.
[2021-08-10 15:03] LABS: Troponin 5 2HR 60.61 ng/L (0-10)
[2021-08-10 15:04] LABS: Troponin 5 2HR Delta 1.61 ABS# (0-10)
--- NOTE | 2021-08-10 15:26 | PC.NURSE ---
Ibarra catheter attempted x2 with 16Fr and 14Fr, unsuccessful. Pt was incontinent of yellow urine during procedure
[2021-08-10 15:39] VITALS: BP 147/80; PULSE 93; TEMP 36.6; O2SAT 100
--- NOTE | 2021-08-10 15:45 | PC.NURSE ---
Report called to YAHAIRA Chan
[2021-08-10 15:58] VITALS: BMI 17.7
[2021-08-10 16:15] VITALS: BP 169/70; PULSE 88; RESP 18; TEMP 36.1; O2SAT 99; BMI 15.3
--- NOTE | 2021-08-10 17:02 | ECG_ITS ---
[facility] Test Date: 2021-08-10 Pat Name: Radha Hubbard Department: Room: 279 Gender: Female Whizzer: : 1935 Requested By: Ron Palafox Order Number: [id number] Gretchen MD: Shaji Atkinson M.D. Measurements Intervals [place] Rate: 86 P: 74 [place]: 149 QRS: 58 QRSD: 74 T: 52 QT: 356 QTc: 427 Interpretive Statements SINUS RHYTHM LOW QRS VOLTAGE IN EXTREMITY LEADS [QRS DEFLECTION < 0.5 mV IN LIMB LEADS] SEPTAL MYOCARDIAL INFARCTION , OF INDETERMINATE AGE [40+ ms Q WAVE IN V1/V2] Compared to ECG 08/10/2021 13:14:00 Low QRS voltage now present Myocardial infarct finding now present T-wave abnormality no longer present Electronically Signed On 08-10-2021 18:32:55 CDT by Shaji Atkinson M.D. [id number]
--- NOTE | 2021-08-10 17:06 | PM.HP ---
Providers/Chief Complaint Admitting Physician: Candido Montes MD Primary Care Provider: Makayla Lyle MD Chief Complaint: FALL/ FOUND DOWN FOR A WHILE History of Present Illness Radha Hubbard is a 86 year old female female who lives alone since her 2 years ago. Initially somewhat depressed she has carried on and her younger cousins through marriage Ed and Corey check on her 1-2 times a week driving in from [place]. Patient has her medication set out by them. ED is the power of emergency room technician and Prasannalorena is medical proxy. Patient has known history of hypertension. Sometimes she does not take her medications. Patient was found down by family today patient tells me that she was walking bathroom in the night fell and does not know how long ago that was. She knows that she is in the hospital. Family members judged by her the fact that she is wearing the same clothes they saw her in last Monday and only 2 sets of dirty bowls for eating cereal that she probably has been down for several days Staff have been unable to get a Ibarra in the urethra at this time as there is significant atrophy of the introitus. Review of Systems Narrative: Patient denies chest pain she denies hip pain Medications/Allergies Home Medications Medication Instructions Recorded Confirmed Last Taken Type latanoprost 0.005 % eye drops 1 drp OPHTHALMIC (EYE) BEDTIME 09/19/19 08/10/21 09/18/19 History levothyroxine 88 mcg tablet 88 mcg PO DAILY 09/19/19 08/10/21 09/19/19 History (Synthroid) lisinopril 20 1 tab PO BID 03/04/20 08/10/21 Unknown History mg-hydrochlorothiazide 12.5 mg tablet furosemide 20 mg tablet (Lasix) 10 mg PO QAM 01/25/21 08/10/21 Unknown History potassium gluconate 600 mg (99 mg) 600 mg PO DAILY 01/25/21 08/10/21 Unknown History tablet alendronate 70 mg tablet 70 mg PO DAILY 08/10/21 08/10/21 Unknown History Allergies Allergy/AdvReac Type Severity Reaction Status Date / Time iodine Allergy ADR-Vomitin Verified 08/10/21 14:01 g PFSH Acute PFSH: Medical History (Updated 08/10/21 @ 17:15 by Candido Montes MD) CHF exacerbation Hypertension Hypothyroidism Hypothyroidism Social History (Updated 08/10/21 @ 11:13 by Ron Palafox MD) Smoking and tobacco status: never smoked Alcohol intake: never Substance/Drug Use: never Vitals/I&O/Wt Last Vital Signs Temp 97.0 F L 08/10/21 16:15 Pulse 88 08/10/21 16:15 Resp 18 08/10/21 16:15 BP 169/70 08/10/21 16:15 Pulse Ox 99 08/10/21 16:15 08/10/21 08/10/21 08/10/21 06:59 14:59 22:59 Intake Total 500 / 500 Balance 500 / 500 Weight last 48 hrs Weight 44.316 kg Weight 49.895 kg Weight 49.895 kg Physical Exam Narrative: General well-developed thin cachectic female in no acute cardiopulmonary distress CV regular rate and rhythm Abdomen positive bowel sounds soft nontender Calves no tenderness cords pedal edema or asymmetry Introitus examined with RNs at bedside show narrowing but no discharge. Urethra is tiny atrophied and palpable just on the underside of the pubic bone but at an angle which Ibarra cannot be placed Data : 08/10/21 11:00 08/10/21 12:38 Micro: Microbiology 08/10/21 13:34 Blood Culture - Preliminary Blood SPECIMEN COLLECTED 08/10/21 12:14 Blood Culture - Preliminary Blood SPECIMEN COLLECTED A&P Assessment and plan (1) Acute kidney failure, unspecified: Patient with BUN 132 creatinine 5.8 Repeat BMP tomorrow morning and daily. Family state that patient would not want dialysis. If that should become necessary we will further discuss with the patient as well Status: Acute (2) Rhabdomyolysis: Hydrate we were unable to place a Ibarra. Monitor for adequate urine output with diapers Status: Acute (3) Dehydration: As above Status: Acute (4) Hypertension: Hold antihypertensives. Specifically the patient is on alendronate, furosemide, lisinopril HCTZ and potassium all of which should be held with renal failure Status: Acute (5) Hypothyroidism: Resume Synthroid. Status: Acute Attestations Medical Necessity Statement*: Patient admitted to the hospital for hydration and therapy anticipate multiple days for recovery of the kidneys and chills subsequently need likely care home facility Time Spent in Patient Care: Greater than 35 minutes 55 minutes spent in evaluation coronation care for this patient today Coding Level of Care Code Acute Laboratory Cureman for Chg Fwd Diagnoses Acute kidney failure, unspecified N17.9 Rhabdomyolysis M62.82 Dehydration E86.0 Hypertension I10 Hypothyroidism E03.9
[2021-08-10] MEDS: heparin 5,000 unit/mL INJ 1 mL 5000 UNIT SUBCUT (17:33)
[2021-08-10] MEDS: sodium chloride 0.9% 1,000 ML 250 ML IV ×2 (17:34→21:31)
--- NOTE | 2021-08-10 17:34 | P.CONIM_ITS ---
Providers/Reason For Consult Consulting Physician/Specialty*: Nephrology Reason for Consult*: Renal Failure Attending Physician: Candido Montes MD Primary Care Provider: Makayla Lyle MD History of Present Illness History of Present Illness Thank for consultation, today the pleasure of reviewing this 86-year-old female for evaluation of acute renal failure. She cannot give any meaningful history, on interview, she mumbles a few words but they are mostly incoherent. Per report, her family found her down, EMT subsequently brought her in. It is unclear as to the duration that she was down for, anywhere between 1 and 7 days. On questioning, she denies any specific complaints today she is not in overt pain anywhere. She is breathing comfortably through nasal cannula oxygen. On arrival she was found to have a serum creatinine of 5.8 mg/dL. The last available lab data we have is from February 2020 when her creatinine was 0.8 mg/dL. So far she has received liberal IV hydration. Ibarra catheter was attempted but 1 was unable to be placed. No extremity edema, shortness of breath or other hypervolemic symptoms. Apart from the also mental status, there is no other obvious uremic symptoms. Hemodynamically she is relatively stable, 5 blood pressure is elevated at 169/70 with a pulse of 88. CPK was slightly elevated at 573. No imaging of the kidneys at this time. Imaging of the head demonstrated no acute intracranial abnormalities and imaging of the lungs demonstrated some old scarring but no acute thoracic findings. Review of Systems Narrative: unobtainable Medications/Allergies Home Medications Medication Instructions Recorded Confirmed Last Taken Type latanoprost 0.005 % eye drops 1 drp OPHTHALMIC (EYE) BEDTIME 09/19/19 08/10/21 09/18/19 History levothyroxine 88 mcg tablet 88 mcg PO DAILY 09/19/19 08/10/21 09/19/19 History (Synthroid) lisinopril 20 1 tab PO BID 03/04/20 08/10/21 Unknown History mg-hydrochlorothiazide 12.5 mg tablet furosemide 20 mg tablet (Lasix) 10 mg PO QAM 01/25/21 08/10/21 Unknown History potassium gluconate 600 mg (99 mg) 600 mg PO DAILY 01/25/21 08/10/21 Unknown History tablet alendronate 70 mg tablet 70 mg PO DAILY 08/10/21 08/10/21 Unknown History Allergies Allergy/AdvReac Type Severity Reaction Status Date / Time iodine Allergy ADR-Vomitin Verified 08/10/21 14:01 g PFSH Acute PFSH: Medical History (Updated 08/10/21 @ 17:15 by Candido Montes MD) CHF exacerbation Hypertension Hypothyroidism Hypothyroidism Social History (Updated 08/10/21 @ 11:13 by Ron Palafox MD) Smoking and tobacco status: never smoked Alcohol intake: never Substance/Drug Use: never Vitals/I&O/Wt Last Vital Signs Temp 97.0 F L 08/10/21 16:15 Pulse 88 08/10/21 16:15 Resp 18 08/10/21 16:15 BP 169/70 08/10/21 16:15 Pulse Ox 99 08/10/21 16:15 08/10/21 08/10/21 08/10/21 06:59 14:59 22:59 Intake Total 500 / 500 Balance 500 / 500 Weight last 48 hrs Weight 44.316 kg Weight 49.895 kg Weight 49.895 kg Physical Exam Narrative: Constitutional: Very drowsy HEENT: Dry mucosa, no jvp, non icteric Lungs: Bilaterally clear without discernible wheeze, rales in all lung zones CVS: S1 S2, no murmurs Abdo: Soft, BS ok Ext 4: Minimal edema, peripheral perfusion with no cyanosis Neurological: Grossly non-focal Data : 08/10/21 11:00 08/10/21 12:38 Micro: Microbiology 08/10/21 13:34 Blood Culture - Preliminary Blood SPECIMEN COLLECTED 08/10/21 12:14 Blood Culture - Preliminary Blood SPECIMEN COLLECTED A&P Assessment and plan (1) Acute kidney failure, unspecified: 1. Acute kidney injury Likely to be severe prerenal azotemia from poor p.o. intake. It is noted that at home she takes Lasix, hydrochlorothiazide and lisinopril, however, her recent compliance with these medications is unknown. I agree with liberal IV hydration Will do work-up to include renal imaging including renal ultrasound scan, urinalysis with urine chemistry if we can get a urine sample, a.m. labs. As long as renal function is continuing to improve, no further diagnostic testing is required. She would not be a candidate for hemodialysis Strict I's and O's if we can get a Ibarra catheter, however I appreciate this is not can be possible. Avoid usual nephrotoxic agents 2. Hypertension Blood pressure remains elevated, would consider parenteral antihypertensives including IV hydralazine and I will prescribe as needed IV hydralazine Would likely benefit from speech and swallow evaluation prior to administering oral medication 3. Nutrition I she wakes up from uremia as she recovers from her renal failure, she would hopefully be a candidate for increased oral intake, however, we will monitor her for refeeding syndrome. 4. Disposition Hopefully she comes out of this and has a good cognitive improvement, however, she does not, would consider palliation. Thank you for consultation David Tello MD Nephrology [phone] Patient seen and examined via telemedicine, with the assistance of the bedside RN > 25 min spent in evaluation and mgmt of patient Status: Acute Coding Level of Care Code Acute Client Development Director for Tyron Shine Diagnoses Acute kidney failure, unspecified N17.9
--- NOTE | 2021-08-10 17:41 | USR_ITS ---
PROCEDURE INFORMATION: Exam: US Retroperitoneal; Complete; Kidneys and Bladder Exam date and time: 08/10/2021 6:45 PM Age: 86 years old Clinical indication: Condition or disease; Kidney or ureter condition; Chronic kidney disease or failure; Not specified; Additional info: Renal failure, spoke with er, PT in process of being moved to floor at 5:45pm-kb TECHNIQUE: Imaging protocol: Real-time ultrasound of the retroperitoneum with image documentation. Complete exam focused on the kidneys and bladder. COMPARISON: CT lumbar spine wo con* [id number] 09/19/2019 9:39 AM FINDINGS: Right kidney: Normal. No stones. No hydronephrosis. Right kidney measures 9.8 cm in length. Both kidneys demonstrate a trace amount of fluid in the calices but no dilatation of the renal pelves or ureters or evidence of hydronephrosis. Echotexture is appropriate and there is no perinephric fluid. Left kidney: Normal. No stones. No hydronephrosis. Left kidney measures 9.6 cm in length. Both kidneys demonstrate a trace amount of fluid in the calices but no dilatation of the renal pelves or ureters or evidence of hydronephrosis. Echotexture is appropriate and there is no perinephric fluid. Urinary bladder: Unremarkable. Pre voiding volume in the bladder is 128 mL. US/US renal BI* [id number] IMPRESSION: Unremarkable kidneys and bladder.
--- NOTE | 2021-08-10 17:56 | PC.NURSE ---
Whitaker was unable to be placed in ER. Once on the floor this nurse, Tali charge hand nurse and Dr Montes attempted to insert whitaker catheter. All attempts unsuccessful. Will pass along to oncoming shift
[2021-08-10 18:21] LABS: Troponin 5 6HR 57.82 ng/L (0-10)
[2021-08-10 18:23] LABS: Calcium 8.2 mg/dL (8.5-10.5); Carbon Dioxide 16 mmol/L (22-29); Chloride 103 mmol/L (98-107); Glucose 89 mg/dL (65-115); Sodium 140 mmol/L (136-145)
[2021-08-10 18:24] LABS: Troponin 5 6HR Delta -1.18 ng/L (0-12)
[2021-08-10 18:33] LABS: Anion Gap 25.9 (5-19); Osmolality Calculated 329 mOsm/kg (285-295); Potassium 4.9 mmol/L (3.5-5.1)
[2021-08-10 18:34] LABS: Blood Urea Nitrogen 123 mg/dL (8-23); Creatine Phosphokinase 678 U/L (26-192)
[2021-08-10 18:53] LABS: CKMB 16.2 ng/mL (0-5.34); CKMB Relative Index 2.3 % (0.0-10.4)
[2021-08-10 20:00] VITALS: BP 150/62; PULSE 86; RESP 16; TEMP 36.9; O2SAT 98
[2021-08-10] MEDS: hyDRALAzine 10 mg Tablet PO (21:30)
[2021-08-10 22:00] VITALS: PULSE 88
[2021-08-10] MEDS: latanoprost 0.005% Op Soln 2.5 mL Btl 1 DROP EYE-BOTH (22:02)
[2021-08-11] VITALS (9 sets, daily range): BP systolic 126–160; BP diastolic 57–85; PULSE 68–91; RESP 14–18; TEMP 36.6–36.9; O2SAT 94–99; BMI 15.3
[2021-08-11] MEDS: sodium chloride 0.9% 1,000 ML 250 ML IV ×3 (02:02→10:39)
[2021-08-11] MEDS: heparin 5,000 unit/mL INJ 1 mL 5000 UNIT SUBCUT ×2 (06:00→15:24)
[2021-08-11] MEDS: levothyroxine 88 mcg Tablet PO (08:21)
[2021-08-11] MEDS: hyDRALAzine 10 mg Tablet PO ×3 (08:21→20:16)
[2021-08-11 10:05] LABS: Alanine Aminotransferase 14 U/L (0-33); Albumin Level 3.4 g/dL (3.5-5.2); Alkaline Phosphatase 49 IU/L (35-105); Anion Gap 23.8 (5-19); Aspartate Amino Transferase 31 U/L (0-32); Basophils % 0.1 %; Calcium 7.7 mg/dL (8.5-10.5); Carbon Dioxide 14 mmol/L (22-29); Chloride 108 mmol/L (98-107); Eosinophils % 0.1 %; Globulin 2.9 g/dL (1.3-4.6); Glucose 94 mg/dL (65-115); Hematocrit 36.5 % (37.0-47.0); Hemoglobin 11.6 g/dL (11.5-15.3); Lymphocytes # 0.7 10^3/uL (0.8-4.8); Mean Corpuscular HGB Conc 31.8 g/dL (30.0-36.0); Mean Corpuscular Hemoglobin 27.6 pg (28.0-34.0); Mean Corpuscular Volume 86.9 fl (81-99); Mean Platelet Volume 10.1 fL (7.4-10.4); Monocytes # 0.6 10^3/uL (0.2-0.9); Monocytes % 9.3 %; Neutrophils % 79.8 %; Nucleated Red Blood Cells % 0 %; Osmolality Calculated 322 mOsm/kg (285-295); Platelet Count 168 10^3/cmm (130-400); Potassium 3.8 mmol/L (3.5-5.1); Sodium 142 mmol/L (136-145); Total Bilirubin 0.4 mg/dL (0.15-1.2); Total Protein 6.3 g/dL (6.6-8.7); White Blood Count 6.8 10^3/uL (4.0-10.0)
[2021-08-11 10:10] LABS: Blood Urea Nitrogen 91 mg/dL (8-23)
--- NOTE | 2021-08-11 11:06 | PC.CHAP ---
Pastoral Care Encounter/Spiritual Assessment Type of Contact [] Declined medium cycle salesperson visit [] Patient/Family/Request visit [] Outpatient visit [] Follow-up visit [] Physician referral [] Code/Alert [x] Routine visit [] Staff referral [] Actively dying [] Patient sleeping [] Family support [] [] Out of room [] Palliative care [] [] Receiving care in room [] Pre-surgical visit [] Trauma [] Long length of stay [] ICU visit [] Other: Relational/Emotional Strength [x] Patient feels connected with others/family/visitors/staff [] Distress [] Loneliness/isolation [] Abandonment Spirituality of Patient [x] Person of Magaly [] Attends Taoist of their Magaly [x] Believes in Prayer [] Reads Bible or Muslim materials [] There are Spiritual issues to be addressed Business Banking Sales Assistant Interventions [x] Prayer [x] Active listening [x] Non-anxious presence [] Spiritual/emotional support [] Crisis/trauma care [] Spiritual counseling [] Bereavement support [] Provided bereavement packet [] Provided Bible/devotional materials [] Provided toy/stuffed animal, coloring book to patient or family member [] Provided Communion [] Anointing/[place] [] Salvation [] Completed spiritual assessment [] Other: Impact on Illness or Injury [] Angry [] Fearful [] Anxious [] Often cries [] Exhaustion [] Unable to work [] Unable to attend episcopalian [] Unable to walk/stand [] Unable to read [] Unable to drive [] Unable to eat/drink [] Unable to sleep [] Unable to be with family [] Patient intubated [] Other: Summary Time spent with patient 5 mimn
[2021-08-11 11:08] LABS: Creatine Phosphokinase 678 U/L (26-192)
--- NOTE | 2021-08-11 11:09 | PM.PN ---
Subjective Subjective: Ms. Hubbard remains minimally verbal, minimally interactive. She has been on intravenous fluid now aggressively overnight and she seems to be tolerating this well without the development of significant edema. No other acute, new symptoms. She does appear comfortable. Vitals/I&O/Wt Last Vital Signs Temp 98.5 F 08/11/21 11:04 Pulse 74 08/11/21 11:04 Resp 17 08/11/21 11:04 BP 126/74 08/11/21 11:04 Pulse Ox 94 08/11/21 11:04 08/10/21 08/11/21 08/11/21 22:59 06:59 14:59 Intake Total 2987.5 / 3487.5 3995.833 / 7483.333 1360 / 1360 Balance 2987.5 / 3487.5 3995.833 / 7483.333 1360 / 1360 Weight last 48 hrs Weight 44.316 kg Weight 44.316 kg Weight 49.895 kg Weight 49.895 kg Physical Exam Narrative: Constitutional: Very drowsy HEENT: Dry mucosa, no jvp, non icteric Lungs: Bilaterally clear without discernible wheeze, rales in all lung zones CVS: S1 S2, no murmurs Abdo: Soft, BS ok Ext 4: Minimal edema, peripheral perfusion with no cyanosis Neurological: Grossly non-focal Data : 08/11/21 09:32 08/11/21 09:32 Micro: Microbiology 08/10/21 13:34 Blood Culture - Preliminary Blood SPECIMEN COLLECTED 08/10/21 12:14 Blood Culture - Preliminary Blood SPECIMEN COLLECTED A&P Assessment and plan (1) Acute kidney failure, unspecified: 1. Acute kidney injury Likely to be severe prerenal azotemia from poor p.o. intake. It is noted that at home she takes Lasix, hydrochlorothiazide and lisinopril, however, her recent compliance with these medications is unknown. Renal function improving rapidly with the administration of intravenous fluid. Continue IV fluid but at a slow rate (see below). Strict I's and O's if we can get a Ibarra catheter, however I appreciate this is not can be possible. Avoid usual nephrotoxic agents 2. Hypertension Looks good 3. Nutrition I she wakes up from uremia as she recovers from her renal failure, she would hopefully be a candidate for increased oral intake, however, we will monitor her for refeeding syndrome. 4. Chemistry Chemistry looks significantly improved, however, bicarb has decreased in the setting of administration of normal saline which is expected. I will switch IV fluids to lactated Ringer's. 5. Disposition Hopefully she comes out of this and has a good cognitive improvement, however, it appears that she has had a subacute decline as an outpatient. This may be in part related to some depression following the loss of her from what I understand. With this in mind, we will request that hospice/palliation are involved. Thank you for consultation David Tello MD Nephrology [phone] Patient seen and examined via telemedicine, with the assistance of the bedside RN > 25 min spent in evaluation and mgmt of patient Status: Acute Attestations Medical Necessity Statement*: eval for DIMPLE Coding Level of Care Code Acute Bioinformatics Software Engineer for Tyron Shine Diagnoses Acute kidney failure, unspecified N17.9
[2021-08-11] MEDS: lactated ringers 1,000 ML 100 ML IV ×2 (11:20→20:17)
[2021-08-11 11:33] LABS: CKMB 13.6 ng/mL (0-5.34)
--- NOTE | 2021-08-11 13:55 | P.PN_ITS ---
Subjective Subjective: 86 yo WF with with DIMPLE and rhabdomyolysis after fallen at home and down a few days of unclear length. She reports legs feel heavy and right hip is painful to touch under the blister. RN reports she is slow to chew but does ok with liquid and ensure. Vitals/I&O/Wt Last Vital Signs Temp 98.5 F 08/11/21 11:04 Pulse 74 08/11/21 11:04 Resp 17 08/11/21 11:04 BP 126/74 08/11/21 11:04 Pulse Ox 94 08/11/21 11:04 08/10/21 08/11/21 08/11/21 22:59 06:59 14:59 Intake Total 2987.5 / 3487.5 3995.833 / 7483.333 2490.833 / 2490.833 Balance 2987.5 / 3487.5 3995.833 / 7483.333 2490.833 / 2490.833 Weight last 48 hrs Weight 44.316 kg Weight 44.316 kg Weight 49.895 kg Weight 49.895 kg Physical Exam Narrative: General well-developed thin cachectic female in no acute cardiopulm onary distress CV regular rate and rhythm Abdomen positive bowel sounds soft nontender Calves no tenderness cords pedal edema or asymmetry Neuro able to raise both heel and lower extremities weakly and slowly off the bed. tremor left arm mild. face right eye mild drop otherwise symmetric. speech is clear Data : 08/11/21 09:32 08/11/21 09:32 Micro: Microbiology 08/10/21 13:34 Blood Culture - Preliminary Blood NEGATIVE TO DATE 08/10/21 12:14 Blood Culture - Preliminary Blood NEGATIVE TO DATE A&P Assessment and plan (1) Acute kidney failure, unspecified: Patient with BUN 132 creatinine 5.8 Repeat BMP tomorrow morning and daily. Family state that patient would not want dialysis. If that should become necessary we will further discuss with the patient as well Renal ultrasound is normal. Patient was seen by habilitation training specialist Dr. Tello in consultation Status: Acute (2) Rhabdomyolysis: Hydrate we were unable to place a Ibarra. Monitor for adequate urine output with diapers CK is stable Chloride elevated will change to half NS with 20 mEq KCl per liter Status: Acute (3) Dehydration: As above Status: Acute (4) Hypertension: Hold antihypertensives. Specifically the patient is on alendronate, furosemide, lisinopril HCTZ and potassium all of which should be held with renal failure Status: Acute (5) Hypothyroidism: Resume Synthroid. Status: Acute Plan Initiate physical therapy and Occupational Therapy. Anticipate that she will need placement in a alf facility Attestations Medical Necessity Statement*: Hydrate and support kidney function in the face of rhabdomyolysis Time Spent in Patient Care: Greater than 35 minutes Coding Level of Care Code Acute Food And Beverage Associate for Tyron Shine Diagnoses Acute kidney failure, unspecified N17.9 Rhabdomyolysis M62.82 Dehydration E86.0 Hypertension I10 Hypothyroidism E03.9
[2021-08-11] MEDS: potassium chloride ER 20 mEq Tablet 40 MEQ PO (15:24)
[2021-08-11] MEDS: latanoprost 0.005% Op Soln 2.5 mL Btl 1 DROP EYE-BOTH (20:16)
--- NOTE | 2021-08-11 20:24 | PC.NURSE ---
Dr. Jacob notified of patient c/o pain all over body. PRN Morphine ordered received.
[2021-08-11] MEDS: morphine 4 mg/mL SDV 1 mL 1 MG IVP (20:41)
[2021-08-12] VITALS (9 sets, daily range): BP systolic 129–167; BP diastolic 66–81; PULSE 63–82; RESP 17–18; TEMP 36.2–36.9; O2SAT 94–100
[2021-08-12] MEDS: heparin 5,000 unit/mL INJ 1 mL 5000 UNIT SUBCUT ×2 (03:21→15:48)
[2021-08-12 04:55] LABS: Basophils % 0.3 %; Eosinophils # 0.1 10^3/uL (0.0-0.8); Eosinophils % 1.1 %; Hematocrit 35.2 % (37.0-47.0); Hemoglobin 11.2 g/dL (11.5-15.3); Lymphocytes # 1.5 10^3/uL (0.8-4.8); Mean Corpuscular HGB Conc 31.8 g/dL (30.0-36.0); Mean Corpuscular Hemoglobin 27.5 pg (28.0-34.0); Mean Corpuscular Volume 86.3 fl (81-99); Mean Platelet Volume 9.5 fL (7.4-10.4); Monocytes # 0.8 10^3/uL (0.2-0.9); Monocytes % 12.1 %; Neutrophils # 3.85 10^3/uL (1.8-7.7); Neutrophils % 61.9 %; Nucleated Red Blood Cells % 0 %; Platelet Count 149 10^3/cmm (130-400); Red Blood Count 4.08 10^6/uL (4.1-5.3); Red Cell Distribution Width 16.1 % (12.1-15.1); White Blood Count 6.2 10^3/uL (4.0-10.0)
[2021-08-12 05:14] LABS: Troponin T (5th) Once 46 ng/L (0-10)
[2021-08-12 07:19] LABS: Alanine Aminotransferase 14 U/L (0-33); Albumin Level 2.8 g/dL (3.5-5.2); Alkaline Phosphatase 45 IU/L (35-105); Blood Urea Nitrogen 76 mg/dL (8-23); Calcium 7.9 mg/dL (8.5-10.5); Carbon Dioxide 13 mmol/L (22-29); Chloride 112 mmol/L (98-107); Globulin 3.2 g/dL (1.3-4.6); Glucose 99 mg/dL (65-115); Osmolality Calculated 319 mOsm/kg (285-295); Sodium 143 mmol/L (136-145); Total Bilirubin 0.4 mg/dL (0.15-1.2)
[2021-08-12 07:24] LABS: Creatine Phosphokinase 433 U/L (26-192)
[2021-08-12 07:25] LABS: Anion Gap 21.9 (5-19); Aspartate Amino Transferase 29 U/L (0-32); Potassium 3.9 mmol/L (3.5-5.1)
[2021-08-12 07:26] LABS: Lipase 622 U/L (13-60)
[2021-08-12 07:47] LABS: CKMB 6.4 ng/mL (0-5.34); CKMB Relative Index 1.4 % (0.0-10.4)
[2021-08-12 08:11] LABS: Thyroid Stimulating Hormone 5.44 uIU/mL (0.27-4.20)
[2021-08-12] MEDS: hyDRALAzine 10 mg Tablet PO ×3 (08:28→21:24)
[2021-08-12] MEDS: levothyroxine 88 mcg Tablet PO (08:28)
[2021-08-12] MEDS: lactated ringers 1,000 ML 100 ML IV (09:53)
--- NOTE | 2021-08-12 10:32 | XRR_ITS ---
PROCEDURE INFORMATION: Exam: XR Right Hip Exam date and time: 08/12/2021 10:49 AM Age: 86 years old Clinical indication: Pain and injury or trauma; Fall; Blunt trauma (contusions or hematomas); Hip pain; Right hip; Patient HX: Fell 3 days ago PT unable to give good history TECHNIQUE: Imaging protocol: XR Right hip. Views: 1 view hip with pelvis when performed. Total images: 2 COMPARISON: CR XR pelvis 1-2V* [id number] 03/04/2020 3:49 PM FINDINGS: Bones/joints: Diffuse osteopenia noted. No acute fracture nor subluxation. No osseous erosion nor periosteal reaction. Soft tissues: Unremarkable. XR/XR hip RT 1V wo/w pel [id number] IMPRESSION: No acute osseous pathology.
[2021-08-12] MEDS: sodium bicarbonate 650 mg Tablet PO ×3 (11:32→21:27)
--- NOTE | 2021-08-12 14:11 | PM.PN ---
Subjective Subjective: 86 yo WF with with DIMPLE and rhabdomyolysis after fallen at home and down a few days of unclear length. She reports legs feel heavy and right hip is painful to touch under the blister. RN reports she is slow to chew but does ok with liquid and ensure. Speech therapist says she does well with liquids but not with solid Patient tells me she feels too weak to walk. X-ray was done of the hip this morning Vitals/I&O/Wt Last Vital Signs Temp 98.5 F 08/12/21 12:00 Pulse 78 08/12/21 12:00 Resp 17 08/12/21 12:00 BP 134/71 08/12/21 12:00 Pulse Ox 98 08/12/21 12:00 08/11/21 08/12/21 08/12/21 22:59 06:59 14:59 Intake Total 1015 / 3505.833 1175 / 1175 Output Total 300 / 300 Balance 715 / 3205.833 1175 / 1175 Weight last 48 hrs Weight 44.316 kg Weight 44.316 kg Weight 49.895 kg Physical Exam Narrative: General well-developed thin cachectic female in no acute cardiopulmonary distress CV regular rate and rhythm Abdomen positive bowel sounds soft nontender Calves no tenderness cords pedal edema or asymmetry speech is clear Data : 08/12/21 04:38 08/12/21 04:38 Micro: Microbiology 08/10/21 13:34 Blood Culture - Preliminary Blood NEGATIVE TO DATE 08/10/21 12:14 Blood Culture - Preliminary Blood NEGATIVE TO DATE Other Imaging: My impression: X-ray of the pelvis shows no hip fracture. She does have lots of stool in the lower colon A&P Assessment and plan (1) Acute kidney failure, unspecified: Patient BUN down to 79 Status: Acute (2) Rhabdomyolysis: CK is coming down and now below 300. Stop CK checks. Chloride elevated will change to half NS with 20 mEq KCl per liter Status: Acute (3) Dehydration: Improved we will give MiraLAX for her constipation Status: Acute (4) Hypertension: Hold antihypertensives. Specifically the patient is on alendronate, furosemide, lisinopril HCTZ and potassium all of which should be held with renal failure Status: Acute (5) Hypothyroidism: Resume Synthroid. Patient's TSH a bit high but I think she has missed several days of her meds so we will continue on home dose 88 mcg daily Status: Acute Plan Initiate physical therapy and Occupational Therapy. Anticipate that she will need placement in a half-way facility Attestations Medical Necessity Statement*: Continue with therapy and IV fluids Time Spent in Patient Care: 16 - 35 minutes Coding Level of Care Code Acute Digital Community Manager for Tyron Shine Diagnoses Acute kidney failure, unspecified N17.9 Rhabdomyolysis M62.82 Dehydration E86.0 Hypertension I10 Hypothyroidism E03.9
[2021-08-12] MEDS: sodium chlor 0.45% +KCl 20 mEq 20 MEQ/1,000 ML BAG 125 MEQ IV (14:45)
--- NOTE | 2021-08-12 16:34 | PM.PN ---
Subjective Subjective: Ms. Hubbard is a little bit more awake, interactive. She does feel comfortable. Taking in a little bit more liquid again now. Receiving liberal amounts of intravenous fluids since hospitalization. Tolerating this well without any significant extremity edema. Vitals/I&O/Wt Last Vital Signs Temp 98.5 F 08/12/21 12:00 Pulse 68 08/12/21 15:43 Resp 18 08/12/21 15:43 BP 129/74 08/12/21 15:43 Pulse Ox 97 08/12/21 15:43 08/12/21 08/12/21 08/12/21 06:59 14:59 22:59 Intake Total 1175 / 1175 Balance 1175 / 1175 Weight last 48 hrs Weight 44.316 kg Physical Exam Narrative: Constitutional: Very drowsy HEENT: Dry mucosa, no jvp, non icteric Lungs: Bilaterally clear without discernible wheeze, rales in all lung zones CVS: S1 S2, no murmurs Abdo: Soft, BS ok Ext 4: Minimal edema, peripheral perfusion with no cyanosis Neurological: Grossly non-focal Data : 08/12/21 04:38 08/12/21 04:38 Micro: Microbiology 08/10/21 13:34 Blood Culture - Preliminary Blood NEGATIVE TO DATE 08/10/21 12:14 Blood Culture - Preliminary Blood NEGATIVE TO DATE A&P Assessment and plan (1) Acute kidney failure, unspecified: 1. Acute kidney injury Likely to be severe prerenal azotemia from poor p.o. intake. It is noted that at home she takes Lasix, hydrochlorothiazide and lisinopril, however, her recent compliance with these medications is unknown. Renal function improving Avoid usual nephrotoxic agents 2. Hypertension Looks good 3. Nutrition I she wakes up from uremia as she recovers from her renal failure, she would hopefully be a candidate for increased oral intake, however, we will monitor her for refeeding syndrome. 4. Chemistry Will add oral sodium bicarbonate to ivf Thank you for consultation David Tello MD Nephrology [phone] Patient seen and examined via telemedicine, with the assistance of the bedside RN > 25 min spent in evaluation and mgmt of patient Status: Acute Attestations Medical Necessity Statement*: eval for DIMPLE Coding Level of Care Code Acute Cut Off Saw Operator Pipe Blanks for Chg Fwd Diagnoses Acute kidney failure, unspecified N17.9
[2021-08-12] MEDS: polyethylene glycol 3350 Pkt 17 gm PO (17:40)
[2021-08-12] MEDS: latanoprost 0.005% Op Soln 2.5 mL Btl 1 DROP EYE-BOTH (21:24)
[2021-08-13] VITALS (10 sets, daily range): BP systolic 118–156; BP diastolic 63–87; PULSE 61–91; RESP 17–20; TEMP 35.8–37.2; O2SAT 97–100
[2021-08-13 03:06] LABS: Blood Urea Nitrogen 55 mg/dL (8-23); Calcium 8.2 mg/dL (8.5-10.5); Carbon Dioxide 22 mmol/L (22-29); Chloride 107 mmol/L (98-107); Glucose 95 mg/dL (65-115); Osmolality Calculated 309 mOsm/kg (285-295); Sodium 142 mmol/L (136-145)
[2021-08-13 03:07] LABS: Anion Gap 17.2 (5-19); Potassium 4.2 mmol/L (3.5-5.1)
[2021-08-13] MEDS: heparin 5,000 unit/mL INJ 1 mL 5000 UNIT SUBCUT ×2 (04:27→15:26)
[2021-08-13] MEDS: hyDRALAzine 10 mg Tablet PO ×3 (09:46→20:30)
[2021-08-13] MEDS: sodium bicarbonate 650 mg Tablet PO (09:46)
[2021-08-13] MEDS: levothyroxine 88 mcg Tablet PO (09:47)
[2021-08-13] MEDS: polyethylene glycol 3350 Pkt 17 gm PO ×2 (09:47→18:08)
[2021-08-13] MEDS: sodium chlor 0.45% +KCl 20 mEq 20 MEQ/1,000 ML BAG 125 MEQ IV (09:48)
--- NOTE | 2021-08-13 13:17 | PM.PN ---
Subjective Subjective: Ms Hubbard is more awake, interactive. Lucid. Diet has been progressed to pur?ed. Having difficulty tolerating this, she is not too fond of the food. Remains on IV hydration. Otherwise no other acute issues. Vitals/I&O/Wt Last Vital Signs Temp 96.4 F L 08/13/21 11:00 Pulse 90 08/13/21 11:00 Resp 20 H 08/13/21 11:00 BP 136/70 08/13/21 11:00 Pulse Ox 97 08/13/21 11:00 08/12/21 08/13/21 08/13/21 22:59 06:59 14:59 Intake Total 1520 / 2695 120 / 2815 360 / 360 Output Total 400 / 400 800 / 1200 200 / 200 Balance 1120 / 2295 -680 / 1615 160 / 160 Physical Exam Narrative: Constitutional: Very drowsy HEENT: Dry mucosa, no jvp, non icteric Lungs: Bilaterally clear without discernible wheeze, rales in all lung zones CVS: S1 S2, no murmurs Abdo: Soft, BS ok Ext 4: Minimal edema, peripheral perfusion with no cyanosis Neurological: Grossly non-focal Data : 08/12/21 04:38 08/13/21 02:11 A&P Assessment and plan (1) Acute kidney failure, unspecified: 1. Acute kidney injury Likely to be severe prerenal azotemia from poor p.o. intake. It is noted that at home she takes Lasix, hydrochlorothiazide and lisinopril, however, her recent compliance with these medications is unknown. Renal function improving Cont ivf for the time being until she has established good oral intake Avoid usual nephrotoxic agents 2. Hypertension Looks good 3. Chemistry Looks better; DC bicarb Acute renal issues now resolving. I will follow this case peripherally at this time. Thank you for our involvement in her care, please do not hesitate to call us should we be of further assistance. David Tello MD Nephrology [phone] Patient seen and examined via telemedicine, with the assistance of the bedside RN > 25 min spent in evaluation and mgmt of patient Status: Acute Attestations Medical Necessity Statement*: eval for DIMPLE Coding Level of Care Code Acute Technical Architect for g Fwd Diagnoses Acute kidney failure, unspecified N17.9
--- NOTE | 2021-08-13 13:55 | P.PN_ITS ---
Subjective Subjective: Patient is awake but withdrawn. She admits to being tired and just wants to rest. She says she is not sure if she is depressed or scared Vitals/I&O/Wt Last Vital Signs Temp 96.4 F L 08/13/21 11:00 Pulse 90 08/13/21 11:00 Resp 20 H 08/13/21 11:00 BP 136/70 08/13/21 11:00 Pulse Ox 97 08/13/21 11:00 08/12/21 08/13/21 08/13/21 22:59 06:59 14:59 Intake Total 1520 / 2695 120 / 2815 360 / 360 Output Total 400 / 400 800 / 1200 200 / 200 Balance 1120 / 2295 -680 / 1615 160 / 160 Physical Exam Narrative: General well-developed thin cachectic female in no acute cardiopulmonary distress CV regular rate and rhythm Abdomen positive bowel sounds soft nontender Calves no tenderness cords pedal edema or asymmetry speech is clear Data : 08/12/21 04:38 08/13/21 02:11 A&P Assessment and plan (1) Acute kidney failure, unspecified: Patient BUN down to 55 Acidosis resolved Status: Acute (2) Rhabdomyolysis: Continue half NS with 20 mEq KCl per liter Status: Acute (3) Hypertension: Hold antihypertensives. Specifically the patient is on alendronate, furosemide, lisinopril HCTZ and potassium all of which should be held with renal failure Status: Acute (4) Hypothyroidism: Resume Synthroid. Patient's TSH a bit high but I think she has missed several days of her meds so we will continue on home dose 88 mcg daily Status: Acute (5) Constipation by delayed colonic transit: Continue MiraLAX Status: Acute (6) Depression: Start escitalopram 10 mg daily Patient's p.o. intake is poor so ongoing to switch her to D5 half NS with 20 mEq KCl per liter Status: Acute Plan Initiate physical therapy and Occupational Therapy. Anticipate that she will need placement in a long term facility Attestations Medical Necessity Statement*: Patient continues on IV fluids as her kidney function recovers. Time Spent in Patient Care: 16 - 35 minutes Coding Level of Care Code Acute Campground Manager for Tyron Sihne Diagnoses Acute kidney failure, unspecified N17.9 Rhabdomyolysis M62.82 Hypertension I10 Hypothyroidism E03.9 Constipation by delayed colonic transit K59.01 Depression F32.A
[2021-08-13] MEDS: D5-NS 0.45% + KCL 20 mEq 20 MEQ/1,000 ML BAG 100 MEQ IV ×2 (15:25→23:57)
[2021-08-13] MEDS: escitalopram 10 mg Tablet PO (15:26)
[2021-08-13] MEDS: latanoprost 0.005% Op Soln 2.5 mL Btl 1 DROP EYE-BOTH (20:30)
[2021-08-14] VITALS (7 sets, daily range): BP systolic 126–177; BP diastolic 65–93; PULSE 63–104; RESP 12–28; TEMP 36.4–36.6; O2SAT 97
[2021-08-14] MEDS: heparin 5,000 unit/mL INJ 1 mL 5000 UNIT SUBCUT ×2 (03:33→15:10)
[2021-08-14 04:35] LABS: Anion Gap 14.6 (5-19); Blood Urea Nitrogen 34 mg/dL (8-23); Carbon Dioxide 23 mmol/L (22-29); Chloride 105 mmol/L (98-107); Glucose 118 mg/dL (65-115); Osmolality Calculated 295 mOsm/kg (285-295); Potassium 4.6 mmol/L (3.5-5.1); Sodium 138 mmol/L (136-145)
[2021-08-14] MEDS: escitalopram 10 mg Tablet PO (09:10)
[2021-08-14] MEDS: hyDRALAzine 10 mg Tablet PO ×3 (09:10→20:35)
[2021-08-14] MEDS: levothyroxine 88 mcg Tablet PO (09:10)
--- NOTE | 2021-08-14 14:28 | PM.PN ---
Subjective Subjective: Seen this morning. She feels well and has no complaints today. She does wear hearing aids. She is very hard of hearing. She states she would like to go home and is not interested in halfway at this time. She states that I should talk to dad and she remained. She states she does not cook at home one of her friends comes over to help her with her daily chores. Vitals/I&O/Wt Last Vital Signs Temp 97.9 F 08/14/21 11:26 Pulse 100 08/14/21 11:26 Resp 16 08/14/21 11:26 BP 148/81 08/14/21 11:26 Pulse Ox 97 08/14/21 11:26 08/13/21 08/14/21 08/14/21 22:59 06:59 14:59 Intake Total 100 / 700 973.333 / 1673.333 120 / 120 Output Total 100 / 300 400 / 700 Balance 0 / 400 573.333 / 973.333 120 / 120 Weight last 48 hrs Weight 49.26 kg Physical Exam Narrative: General well-developed thin cachectic female in no acute cardiopulmonary distress CV regular rate and rhythm Abdomen positive bowel sounds soft nontender Calves no tenderness cords pedal edema or asymmetry speech is clear Data : 08/12/21 04:38 08/14/21 03:40 A&P Assessment and plan (1) Depression: Status: Acute (2) Constipation by delayed colonic transit: Status: Acute (3) Hypothyroidism: Status: Acute (4) Hypertension: Status: Acute (5) Rhabdomyolysis: Status: Acute (6) Acute kidney failure, unspecified: Status: Acute (7) Uremic encephalopathy: Status: Acute (8) Dehydration: Status: Acute (9) Elevated CPK: Status: Acute Plan #Acute kidney injury most likely prerenal #Rhabdomyolysis #Hypertension #Hypothyroidism #Constipation by delayed colonic transit #Depression ? BUN and creatinine are coming down. Creatinine 1.5 today. Acidosis has resolved. ? Continue IV fluids for further recovery of kidney function ? Hold home antihypertensives alendronate, furosemide, lisinopril hydrochlorothiazide, potassium. Nephrology is following ? Continue Synthroid ? Continue MiraLAX ? Start citalopram 10 mg daily PT OT. Most likely will need placement to senior care facility I will try to call her family today to discuss as well. DNR/DNI DVT prophylaxis Heparin subcu Dysphagia level 1 diet pur?ed ? Attestations Medical Necessity Statement*: Still has elevated creatinine. Will need to manage acute kidney injury prior to discharge. Eventually she will need placement to a senior care facility. Requires inpatient level care. Anticipate stay for another 48 hours for medical management of DIMPLE. Coding Level of Care Code Acute Ground Instructor Basic for Chg Fwd Diagnoses Depression F32.A Constipation by delayed colonic transit K59.01 Hypothyroidism E03.9 Hypertension I10 Rhabdomyolysis M62.82 Acute kidney failure, unspecified N17.9 Uremic encephalopathy G93.49; N19 Dehydration E86.0 Elevated CPK R74.8
[2021-08-14] MEDS: D5-NS 0.45% + KCL 20 mEq 20 MEQ/1,000 ML BAG 100 MEQ IV (15:10)
[2021-08-14] MEDS: latanoprost 0.005% Op Soln 2.5 mL Btl 1 DROP EYE-BOTH (20:37)
[2021-08-15] VITALS (9 sets, daily range): BP systolic 124–151; BP diastolic 67–81; PULSE 63–100; RESP 16–18; TEMP 36.5–37.2; O2SAT 93–97
[2021-08-15] MEDS: D5-NS 0.45% + KCL 20 mEq 20 MEQ/1,000 ML BAG 100 MEQ IV ×2 (03:20→18:27)
[2021-08-15] MEDS: heparin 5,000 unit/mL INJ 1 mL 5000 UNIT SUBCUT ×2 (03:20→15:47)
[2021-08-15 04:18] LABS: Basophils % 0.2 %; Eosinophils # 0.1 10^3/uL (0.0-0.8); Eosinophils % 1.4 %; Hematocrit 31.4 % (37.0-47.0); Hemoglobin 10.3 g/dL (11.5-15.3); Lymphocytes # 1.4 10^3/uL (0.8-4.8); Lymphocytes % 22.3 %; Mean Corpuscular HGB Conc 32.8 g/dL (30.0-36.0); Mean Corpuscular Hemoglobin 27.7 pg (28.0-34.0); Mean Corpuscular Volume 84.4 fl (81-99); Mean Platelet Volume 9.6 fL (7.4-10.4); Monocytes # 0.5 10^3/uL (0.2-0.9); Monocytes % 7.4 %; Neutrophils # 4.26 10^3/uL (1.8-7.7); Neutrophils % 68.2 %; Nucleated Red Blood Cells % 0 %; Platelet Count 135 10^3/cmm (130-400); Red Blood Count 3.72 10^6/uL (4.1-5.3); Red Cell Distribution Width 15.9 % (12.1-15.1); White Blood Count 6.2 10^3/uL (4.0-10.0)
[2021-08-15 04:38] LABS: Anion Gap 13.1 (5-19); Blood Urea Nitrogen 23 mg/dL (8-23); Calcium 7.5 mg/dL (8.5-10.5); Carbon Dioxide 22 mmol/L (22-29); Chloride 103 mmol/L (98-107); Creatine Phosphokinase 81 U/L (26-192); Glucose 117 mg/dL (65-115); Magnesium 1.2 mg/dL (1.7-2.3); Osmolality Calculated 283 mOsm/kg (285-295); Potassium 4.1 mmol/L (3.5-5.1); Sodium 134 mmol/L (136-145)
[2021-08-15] MEDS: escitalopram 10 mg Tablet PO (08:28)
[2021-08-15] MEDS: polyethylene glycol 3350 Pkt 17 gm PO (08:28)
[2021-08-15] MEDS: levothyroxine 88 mcg Tablet PO (08:28)
[2021-08-15] MEDS: hyDRALAzine 10 mg Tablet PO ×3 (08:28→21:38)
--- NOTE | 2021-08-15 08:38 | P.PN_ITS ---
Subjective Subjective: She was seen this morning. No acute events overnight. She stated that she was feeling a little bit nauseous this morning but otherwise is okay. She is very hard of hearing. She is pending placement. mental health program manager spoke to family and they are interested in penitentiary for the patient at this time. Vitals/I&O/Wt Last Vital Signs Temp 98.4 F 08/15/21 05:39 Pulse 99 08/15/21 06:00 Resp 17 08/15/21 01:00 BP 151/81 08/15/21 05:39 Pulse Ox 96 08/15/21 05:39 08/14/21 08/15/21 08/15/21 22:59 06:59 14:59 Intake Total 320 / 1365 1045 / 2410 Output Total 200 / 200 Balance 120 / 1165 1045 / 2210 Weight last 48 hrs Weight 48.943 kg Weight 49.26 kg Physical Exam Narrative: General well-developed thin cachectic female in no acute cardiopulmonary distress Normocephalic atraumatic, breathing normally on room air no acute respiratory distress. CV regular rate and rhythm Abdomen positive bowel sounds soft nontender Lungs clear to auscultation bilaterally no wheezes no rhonchi Bilateral lower extremity no edema or cyanosis noted. speech is clear [place]-neck deformity of both hands Data : 08/15/21 03:56 08/15/21 03:56 A&P Assessment and plan (1) Depression: Status: Acute (2) Constipation by delayed colonic transit: Status: Acute (3) Hypothyroidism: Status: Acute (4) Hypertension: Status: Acute (5) Rhabdomyolysis: Status: Acute (6) Acute kidney failure, unspecified: Status: Acute (7) Uremic encephalopathy: Status: Acute (8) Dehydration: Status: Acute Plan #Acute kidney injury most likely prerenal #Rhabdomyolysis #Hypertension #Hypothyroidism #Constipation by delayed colonic transit #Depression ? BUN and creatinine are coming down.? Creatinine 1.2 today.? Acidosis has resolved. ? Continue IV fluids for further recovery of kidney function ? Hold home antihypertensives alendronate, furosemide, lisinopril hydrochl orothiazide, potassium.? Nephrology is following ? Continue Synthroid ? Continue MiraLAX ? Continue citalopram 10 mg daily PT OT.? Most likely will need placement to [facility] facility Will call family today. DNR/DNI DVT prophylaxis Heparin subcu Dysphagia level 1 diet pur?ed Attestations Medical Necessity Statement*: Placement to [facility] facility. Pending placement Coding Level of Care Code Acute Lead Sustainability Specialist for Chg Fwd Diagnoses Depression F32.A Constipation by delayed colonic transit K59.01 Hypothyroidism E03.9 Hypertension I10 Rhabdomyolysis M62.82 Acute kidney failure, unspecified N17.9 Uremic encephalopathy G93.49; N19 Dehydration E86.0
[2021-08-15] MEDS: magnesium sulfate premix 4 GM/100 ML PREMIX IV (09:19)
--- NOTE | 2021-08-15 11:01 | PC.SOCIAL ---
IMM Updated Updated pt on IMM. No questions voiced. Provided pt a copy. Initialed, dated, & timed copy in chart.
[2021-08-15] MEDS: ondansetron 2 mg/ML SDV 2 mL 4 MG IVP (11:30)
[2021-08-15 16:55] LABS: Phosphorus 1.4 mg/dL (2.5-4.5)
[2021-08-15] MEDS: phosphorus 250 mg Tablet PO (21:38)
[2021-08-15] MEDS: latanoprost 0.005% Op Soln 2.5 mL Btl 1 DROP EYE-BOTH (21:38)
[2021-08-16] VITALS (9 sets, daily range): BP systolic 124–164; BP diastolic 66–103; PULSE 67–100; RESP 16–18; TEMP 36.3–37; O2SAT 95–97
[2021-08-16] MEDS: heparin 5,000 unit/mL INJ 1 mL 5000 UNIT SUBCUT ×2 (04:04→17:19)
[2021-08-16 04:26] LABS: Basophils % 0.4 %; Eosinophils # 0.1 10^3/uL (0.0-0.8); Eosinophils % 1.4 %; Hematocrit 31.1 % (37.0-47.0); Hemoglobin 10.2 g/dL (11.5-15.3); Lymphocytes # 1.4 10^3/uL (0.8-4.8); Lymphocytes % 24.3 %; Mean Corpuscular HGB Conc 32.8 g/dL (30.0-36.0); Mean Corpuscular Hemoglobin 27.6 pg (28.0-34.0); Mean Corpuscular Volume 84.3 fl (81-99); Mean Platelet Volume 9.6 fL (7.4-10.4); Monocytes # 0.5 10^3/uL (0.2-0.9); Monocytes % 8.2 %; Neutrophils # 3.69 10^3/uL (1.8-7.7); Neutrophils % 65.3 %; Nucleated Red Blood Cells % 0 %; Platelet Count 156 10^3/cmm (130-400); Red Blood Count 3.69 10^6/uL (4.1-5.3); Red Cell Distribution Width 15.6 % (12.1-15.1); White Blood Count 5.6 10^3/uL (4.0-10.0)
[2021-08-16 04:35] LABS: Blood Urea Nitrogen 13 mg/dL (8-23); Calcium 7.6 mg/dL (8.5-10.5); Carbon Dioxide 21 mmol/L (22-29); Chloride 101 mmol/L (98-107); Creatine Phosphokinase 58 U/L (26-192); Glucose 113 mg/dL (65-115); Magnesium 1.9 mg/dL (1.7-2.3); Osmolality Calculated 273 mOsm/kg (285-295); Sodium 131 mmol/L (136-145)
[2021-08-16 04:49] LABS: Add Urine Microscopic? YES; Bilirubin Urine Neg (Negative); Blood Urine 3+ (Negative); Glucose Urine UA 2+ (Normal); Ketones Urine Negative (Negative); Leukocyte Esterase Urine 2+ (Negative); Nitrate Urine Positive (Negative); Protein Urine 1+ (Negative); Urine Appearance Cloudy (CLEAR); Urine Color Yellow (Yellow); Urobilinogen Urine 1 mg/dL (Negative); pH Urine 7 (5-7)
[2021-08-16 04:50] LABS: Add Urine Culture? Yes; Bacteria Urine 4+ /hpf; RBC Urine 0-4 /hpf (0-2); Squamous Epithelial Cell Urine 0-4 /hpf (0-5); WBC Urine TOO NUMEROUS TO CNT /hpf (0-5)
[2021-08-16 04:58] LABS: Creatinine Urine, Random 29 mg/dL (28-217); Urine Random Sodium 131 mmol/L
[2021-08-16] MEDS: D5-NS 0.45% + KCL 20 mEq 20 MEQ/1,000 ML BAG 100 MEQ IV ×2 (05:38→17:19)
[2021-08-16] MEDS: phosphorus 250 mg Tablet PO ×2 (07:59→17:19)
[2021-08-16] MEDS: ondansetron 2 mg/ML SDV 2 mL 4 MG IVP (07:59)
[2021-08-16] MEDS: polyethylene glycol 3350 Pkt 17 gm PO ×2 (07:59→17:20)
[2021-08-16] MEDS: escitalopram 10 mg Tablet PO (08:00)
[2021-08-16] MEDS: cefTRIAXone 1,000 MG in sodium chloride 0.9% (plus) 50 ML 100 MG IV (08:00)
[2021-08-16] MEDS: hyDRALAzine 10 mg Tablet PO ×3 (08:00→21:20)
[2021-08-16] MEDS: levothyroxine 88 mcg Tablet PO (08:05)
--- NOTE | 2021-08-16 16:24 | P.PN_ITS ---
Subjective Subjective: Seen this AM. Urine positive. ceftriaxone started family seen at bedside [facility] intake seems to be poor Vitals/I&O/Wt Last Vital Signs Temp 98.5 F 08/16/21 12:00 Pulse 100 08/16/21 14:00 Resp 16 08/16/21 12:00 BP 153/74 08/16/21 12:00 Pulse Ox 95 08/16/21 12:00 08/16/21 08/16/21 08/16/21 06:59 14:59 22:59 Intake Total 964.667 / 4.667 50 / 50 Output Total 60 / 60 Balance 904.667 / 2003.667 50 / 50 Weight last 48 hrs Weight 48.943 kg Physical Exam Narrative: General well-developed thin cachectic female in no acute cardiopulmonary distress Normocephalic atraumatic, breathing normally on room air no acute respiratory distress. CV regular rate and rhythm Abdomen positive bowel sounds soft nontender Lungs clear to auscultation bilaterally no wheezes no rhonchi Bilateral lower extremity no edema or cyanosis noted. speech is clear [place]-neck deformity of both hands Data : 08/16/21 04:02 08/16/21 04:02 Micro: Microbiology 08/10/21 13:34 Blood Culture - Final Blood NO GROWTH AFTER 5 DAYS 08/10/21 12:14 Blood Culture - Final Blood NO GROWTH AFTER 5 DAYS A&P Assessment and plan (1) Depression: Status: Acute (2) Constipation by delayed colonic transit: Status: Acute (3) Hypothyroidism: Status: Acute (4) Hypertension: Status: Acute (5) Rhabdomyolysis: Status: Acute (6) Acute kidney failure, unspecified: Status: Acute (7) Dehydration: Status: Acute (8) Elevated CPK: Status: Acute Plan #Acute kidney injury most likely prerenal #Rhabdomyolysis - resoled #Hypertension #Hypothyroidism #Constipation by delayed colonic transit #Depression #UTI #urinary incontinance ? BUN and creatinine are coming down.? Creatinine 1.1 today.? Acidosis has resolved. ? Continue IV fluids for further recovery of kidney function ? Hold home antihypertensives alendronate, furosemide, lisinopril hydrochlorothiazide, potassium.? Nephrology is following ? Continue Synthroid ? Continue MiraLAX ? stop citalopram 10 mg daily - start mirtazipine 7.5 08/17/21 PT OT.? Most likely will need placement to intermediate facility family updated bedside DNR/DNI DVT prophylaxis Heparin subcu Dysphagia level 1 diet pur?ed Attestations Medical Necessity Statement*: pending placement and needs tx for uti. continue inpt mgmt till urine culture sensitivity returns Coding Level of Care Code Acute Word Processing Machine Operator for Chg Fwd Diagnoses Depression F32.A Constipation by delayed colonic transit K59.01 Hypothyroidism E03.9 Hypertension I10 Rhabdomyolysis M62.82 Acute kidney failure, unspecified N17.9 Dehydration E86.0 Elevated CPK R74.8
[2021-08-16] MEDS: latanoprost 0.005% Op Soln 2.5 mL Btl 1 DROP EYE-BOTH (21:22)
[2021-08-17] VITALS (9 sets, daily range): BP systolic 123–157; BP diastolic 63–89; PULSE 64–86; RESP 16–18; TEMP 36.6–36.8; O2SAT 94–98
[2021-08-17] MEDS: D5-NS 0.45% + KCL 20 mEq 20 MEQ/1,000 ML BAG 100 MEQ IV ×2 (03:39→13:59)
[2021-08-17] MEDS: heparin 5,000 unit/mL INJ 1 mL 5000 UNIT SUBCUT ×2 (03:40→16:09)
[2021-08-17 05:26] LABS: Basophils % 0.2 %; Eosinophils # 0.1 10^3/uL (0.0-0.8); Eosinophils % 1.9 %; Hematocrit 30.6 % (37.0-47.0); Hemoglobin 9.9 g/dL (11.5-15.3); Lymphocytes # 1.5 10^3/uL (0.8-4.8); Lymphocytes % 30.4 %; Mean Corpuscular HGB Conc 32.4 g/dL (30.0-36.0); Mean Corpuscular Hemoglobin 27.5 pg (28.0-34.0); Mean Platelet Volume 10.4 fL (7.4-10.4); Monocytes # 0.4 10^3/uL (0.2-0.9); Monocytes % 8.8 %; Neutrophils # 2.77 10^3/uL (1.8-7.7); Neutrophils % 58.1 %; Nucleated Red Blood Cells % 0 %; Platelet Count 173 10^3/cmm (130-400); Red Cell Distribution Width 15.6 % (12.1-15.1); White Blood Count 4.8 10^3/uL (4.0-10.0)
[2021-08-17 05:53] LABS: Anion Gap 14.2 (5-19); Blood Urea Nitrogen 8 mg/dL (8-23); Calcium 7.5 mg/dL (8.5-10.5); Carbon Dioxide 19 mmol/L (22-29); Chloride 100 mmol/L (98-107); Glucose 104 mg/dL (65-115); Magnesium 1.6 mg/dL (1.7-2.3); Osmolality Calculated 267 mOsm/kg (285-295); Phosphorus 1.6 mg/dL (2.5-4.5); Potassium 4.2 mmol/L (3.5-5.1); Sodium 129 mmol/L (136-145)
[2021-08-17] MEDS: cefTRIAXone 1,000 MG in sodium chloride 0.9% (plus) 50 ML 100 MG IV (08:40)
[2021-08-17] MEDS: levothyroxine 88 mcg Tablet PO (08:41)
[2021-08-17] MEDS: polyethylene glycol 3350 Pkt 17 gm PO ×2 (08:41→17:40)
[2021-08-17] MEDS: hyDRALAzine 10 mg Tablet PO ×3 (08:41→21:45)
[2021-08-17] MEDS: phosphorus 250 mg Tablet PO ×2 (08:41→17:40)
--- NOTE | 2021-08-17 16:43 | PM.PN ---
Subjective Subjective: seen this AM. pt aox3. cracking jokes when seen. doing really well. still refusing to eat and saying no appetite. mirtazipine added last night. u cx resulted and reviewed. pt is a total assist at this time and requires help with all ADLS Vitals/I&O/Wt Last Vital Signs Temp 97.8 F 08/17/21 15:32 Pulse 84 08/17/21 15:32 Resp 16 08/17/21 15:32 BP 124/65 08/17/21 15:32 Pulse Ox 97 08/17/21 15:32 08/17/21 08/17/21 08/17/21 06:59 14:59 22:59 Intake Total 1060 / 2170 1240 / 1240 Output Total 100 / 100 Balance 960 / 2070 1240 / 1240 Physical Exam Narrative: General well-developed thin cachectic female in no acute cardiopulmonary distress Normocephalic atraumatic, breathing normally on room air no acute respiratory distress. CV regular rate and rhythm Abdomen positive bowel sounds soft nontender Lungs clear to auscultation bilaterally no wheezes no rhonchi Bilateral lower extremity no edema or cyanosis noted. speech is clear [place]-neck deformity of both hands Data : 08/17/21 04:20 08/17/21 04:20 Micro: Microbiology 08/16/21 04:35 Urine Culture - Preliminary Urine,Clean Catch Gram Negative Rods A&P Assessment and plan (1) Depression: Status: Acute (2) Constipation by delayed colonic transit: Status: Acute (3) Hypothyroidism: Status: Acute (4) Hypertension: Status: Acute (5) Rhabdomyolysis: Status: Acute (6) Acute kidney failure, unspecified: Status: Acute (7) Uremic encephalopathy: Status: Acute (8) Dehydration: Status: Acute (9) Elevated CPK: Status: Acute Plan #Acute kidney injury most likely prerenal #Rhabdomyolysis - resoled #Hypertension #Hypothyroidism #Constipation by delayed colonic transit #Depression #UTI #urinary incontinance #Hyponatremia #hypomangasemia #Hypophosphatemia ? DIMPLE resolved. - Stop IV fluids, enourage oral intake. - Hyponatremia probably iatrogenic 2/2 to fluids. WIll stop today. ? Hold home antihypertensives alendronate, furosemide, lisinopril hydrochlorothiazide, potassium.? Nephrology is following ? Continue Synthroid ? Continue MiraLAX ? continue mirtazipine 7.5 08/17/21 - continue ceftriaxone for UTI - Relete electrolytes PT OT.? family updated bedside pending placement DNR/DNI DVT prophylaxis Heparin subcu Dysphagia level 1 diet pur?ed Attestations Medical Necessity Statement*: hyponatremia, needs mgmt of correction of electrolytes > 24 hr stay expected at this time case mgmt working on placement. Coding Level of Care Code Acute Analytical Research Chemist for g Fwd Diagnoses Depression F32.A Constipation by delayed colonic transit K59.01 Hypothyroidism E03.9 Hypertension I10 Rhabdomyolysis M62.82 Acute kidney failure, unspecified N17.9 Uremic encephalopathy G93.49; N19 Dehydration E86.0 Elevated CPK R74.8
[2021-08-17] MEDS: mirtazapine 15 mg Tablet 7.5 MG PO (21:45)
[2021-08-17] MEDS: latanoprost 0.005% Op Soln 2.5 mL Btl 1 DROP EYE-BOTH (21:46)
[2021-08-18] VITALS (10 sets, daily range): BP systolic 111–162; BP diastolic 64–86; PULSE 63–106; RESP 12–18; TEMP 36.5–36.9; O2SAT 95–100
[2021-08-18] MEDS: heparin 5,000 unit/mL INJ 1 mL 5000 UNIT SUBCUT ×2 (03:11→17:12)
[2021-08-18] MEDS: cefTRIAXone 1,000 MG in sodium chloride 0.9% (plus) 50 ML 100 MG IV (08:40)
[2021-08-18] MEDS: hyDRALAzine 10 mg Tablet PO ×3 (08:40→21:03)
[2021-08-18] MEDS: levothyroxine 88 mcg Tablet PO (08:40)
[2021-08-18] MEDS: phosphorus 250 mg Tablet PO ×2 (08:40→17:12)
[2021-08-18 09:48] LABS: Blood Urea Nitrogen 6 mg/dL (8-23); Calcium 8.5 mg/dL (8.5-10.5); Carbon Dioxide 19 mmol/L (22-29); Chloride 101 mmol/L (98-107); Glucose 92 mg/dL (65-115); Osmolality Calculated 269 mOsm/kg (285-295); Sodium 131 mmol/L (136-145)
[2021-08-18 09:49] LABS: Anion Gap 15.1 (5-19); Potassium 4.1 mmol/L (3.5-5.1)
--- NOTE | 2021-08-18 13:13 | P.PN_ITS ---
Subjective Subjective: Seen this morning. Patient ate a pancake and drink juice. IV fluids have been stopped. She states she is doing really well and feels energetic. Vitals/I&O/Wt Last Vital Signs Temp 98.1 F 08/18/21 11:58 Pulse 106 H 08/18/21 11:58 Resp 16 08/18/21 11:58 BP 137/74 08/18/21 11:58 Pulse Ox 97 08/18/21 11:58 08/17/21 08/18/21 08/18/21 22:59 06:59 14:59 Intake Total 368.333 / 1608.333 120 / 120 Output Total 200 / 200 500 / 700 Balance 168.333 / 1408.333 -500 / 908.333 120 / 120 Weight last 48 hrs Weight 48.534 kg Physical Exam Narrative: General well-developed thin cachectic female in no acute c ardiopulmonary distress Normocephalic atraumatic, breathing normally on room air no acute respiratory distress. CV regular rate and rhythm Abdomen positive bowel sounds soft nontender Lungs clear to auscultation bilaterally no wheezes no rhonchi Bilateral lower extremity no edema or cyanosis noted. speech is clear [place]-neck deformity of both hands Data : 08/17/21 04:20 08/18/21 09:16 Micro: Microbiology 08/16/21 04:35 Urine Culture - Final Urine,Clean Catch Escherichia coli A&P Assessment and plan (1) Depression: Status: Acute (2) Constipation by delayed colonic transit: Status: Acute (3) Hypothyroidism: Status: Acute (4) Hypertension: Status: Acute (5) Rhabdomyolysis: Status: Acute (6) Acute kidney failure, unspecified: Status: Acute (7) Uremic encephalopathy: Status: Acute (8) Dehydration: Status: Acute (9) Elevated CPK: Status: Acute Plan #Acute kidney injury most likely prerenal #Rhabdomyolysis - resoled #Hypertension #Hypothyroidism #Constipation by delayed colonic transit #Depression #UTI #urinary incontinance #Hyponatremia #hypomangasemia #Hypophosphatemia ? DIMPLE resolved. - Stop IV fluids, enourage oral intake. -Hyponatremia improving. ? Hold home antihypertensives alendronate, furosemide, lisinopril hydrochlorothiazide, potassium.? Nephrology is following ? Continue Synthroid ? Continue MiraLAX ? continue mirtazipine 7.5 08/17/21 - continue ceftriaxone for UTI - Relete electrolytes PT OT.? family updated bedside pending placement DNR/DNI DVT prophylaxis Heparin subcu Dysphagia level 1 diet pur?ed Attestations Medical Necessity Statement*: Pending placement Coding Level of Care Code Acute Web Design Specialist for Chg Fwd Diagnoses Depression F32.A Constipation by delayed colonic transit K59.01 Hypothyroidism E03.9 Hypertension I10 Rhabdomyolysis M62.82 Acute kidney failure, unspecified N17.9 Uremic encephalopathy G93.49; N19 Dehydration E86.0 Elevated CPK R74.8
[2021-08-18] MEDS: polyethylene glycol 3350 Pkt 17 gm PO (17:12)
[2021-08-18] MEDS: mirtazapine 15 mg Tablet 7.5 MG PO (21:03)
[2021-08-18] MEDS: latanoprost 0.005% Op Soln 2.5 mL Btl 1 DROP EYE-BOTH (21:03)
[2021-08-19] VITALS (7 sets, daily range): BP systolic 112–167; BP diastolic 55–83; PULSE 0–116; RESP 16–18; TEMP 36.4–36.9; O2SAT 97–99
[2021-08-19] MEDS: heparin 5,000 unit/mL INJ 1 mL 5000 UNIT SUBCUT ×2 (04:45→16:19)
[2021-08-19] MEDS: cefTRIAXone 1,000 MG in sodium chloride 0.9% (plus) 50 ML 100 MG IV (08:10)
[2021-08-19] MEDS: hyDRALAzine 10 mg Tablet PO ×3 (08:11→20:38)
[2021-08-19] MEDS: levothyroxine 88 mcg Tablet PO (08:11)
[2021-08-19] MEDS: phosphorus 250 mg Tablet PO ×2 (08:11→17:17)
[2021-08-19] MEDS: polyethylene glycol 3350 Pkt 17 gm PO ×2 (08:11→17:18)
--- NOTE | 2021-08-19 09:29 | PC.SOCIAL ---
IMM update IMM updated with patient. Copy Pg 2 provided. Initialled, dated, timed, and placed in chart.
--- NOTE | 2021-08-19 18:12 | P.PN_ITS ---
Subjective Subjective: Seen this morning. Patient appears really well today. Family is present at bedside. She ate a pancake yesterday and also finished her breakfast this morning she had scrambled eggs. Patient is improving very nicely and her appetite is also better. I was really happy to see her today. Vitals/I&O/Wt Last Vital Signs Temp 97.9 F 08/19/21 15:38 Pulse 110 H 08/19/21 15:38 Resp 16 08/19/21 15:38 BP 112/69 08/19/21 15:38 Pulse Ox 97 08/19/21 15:38 08/19/21 08/19/21 08/19/21 06:59 14:59 22:59 Intake Total 0 / 170 480 / 480 Balance 0 / -230 480 / 480 Weight last 48 hrs Weight 48.534 kg Weight 48.534 kg Physical Exam Narrative: General well-developed thin cachectic female in no acute ca rdiopulmonary distress Normocephalic atraumatic, breathing normally on room air no acute respiratory distress. CV regular rate and rhythm Abdomen positive bowel sounds soft nontender Lungs clear to auscultation bilaterally no wheezes no rhonchi Bilateral lower extremity no edema or cyanosis noted. speech is clear [place]-neck deformity of both hands Data : 08/17/21 04:20 08/18/21 09:16 A&P Assessment and plan (1) Depression: Status: Acute (2) Constipation by delayed colonic transit: Status: Acute (3) Hypothyroidism: Status: Acute (4) Hypertension: Status: Acute (5) Rhabdomyolysis: Status: Acute (6) Acute kidney failure, unspecified: Status: Acute (7) Uremic encephalopathy: Status: Acute (8) Dehydration: Status: Acute (9) Elevated CPK: Status: Acute Plan #Acute kidney injury most likely prerenal #Rhabdomyolysis - resoled #Hypertension #Hypothyroidism #Constipation by delayed colonic transit #Depression #UTI #urinary incontinance #Hyponatremia #hypomangasemia #Hypophosphatemia ? DIMPLE resolved. - Stop IV fluids, enourage oral intake. -Hyponatremia improving. ? Hold home antihypertensives alendronate, furosemide, lisinopril hydrochlorothiazide, potassium.? Nephrology is following ? Continue Synthroid ? Continue MiraLAX ? continue mirtazipine 7.5 08/17/21 - continue ceftriaxone for UTI - Relete electrolytes PT OT.? family updated bedside pending placement DNR/DNI DVT prophylaxis Heparin subcu Dysphagia level 1 diet pur?ed Attestations Medical Necessity Statement*: pending placement Coding Level of Care Code Acute Nuclear Reactor Operator for Chg Fwd Diagnoses Depression F32.A Constipation by delayed colonic transit K59.01 Hypothyroidism E03.9 Hypertension I10 Rhabdomyolysis M62.82 Acute kidney failure, unspecified N17.9 Uremic encephalopathy G93.49; N19 Dehydration E86.0 Elevated CPK R74.8
[2021-08-19] MEDS: mirtazapine 15 mg Tablet 7.5 MG PO (20:38)
[2021-08-19] MEDS: latanoprost 0.005% Op Soln 2.5 mL Btl 1 DROP EYE-BOTH (20:38)
[2021-08-20] VITALS (8 sets, daily range): BP systolic 111–130; BP diastolic 52–86; PULSE 63–99; RESP 17–18; TEMP 36.6–36.8; O2SAT 94–97
[2021-08-20] MEDS: heparin 5,000 unit/mL INJ 1 mL 5000 UNIT SUBCUT (03:46)
[2021-08-20 03:55] LABS: Blood Urea Nitrogen 12 mg/dL (8-23); Calcium 8.3 mg/dL (8.5-10.5); Carbon Dioxide 21 mmol/L (22-29); Chloride 101 mmol/L (98-107); Glucose 80 mg/dL (65-115); Magnesium 1.6 mg/dL (1.7-2.3); Osmolality Calculated 275 mOsm/kg (285-295); Phosphorus 3.4 mg/dL (2.5-4.5); Sodium 133 mmol/L (136-145)
[2021-08-20 04:15] LABS: Anion Gap 14.8 (5-19); Potassium 3.8 mmol/L (3.5-5.1)
[2021-08-20] MEDS: cefTRIAXone 1,000 MG in sodium chloride 0.9% (plus) 50 ML 100 MG IV (08:12)
[2021-08-20] MEDS: magnesium sulfate premix 4 GM/100 ML PREMIX IV (09:02)
[2021-08-20] MEDS: levothyroxine 88 mcg Tablet PO (09:13)
[2021-08-20] MEDS: polyethylene glycol 3350 Pkt 17 gm PO (09:13)
[2021-08-20] MEDS: hyDRALAzine 10 mg Tablet PO ×2 (09:13→14:47)
[2021-08-20] MEDS: phosphorus 250 mg Tablet PO (09:13)
--- NOTE | 2021-08-20 11:46 | P.PN_ITS ---
Subjective Subjective: Seen this AM. Doing a lot better eating and drinking. Talkative today. No acute events overnight. Completing ceftriaxone for total 5 days today. Vitals/I&O/Wt Last Vital Signs Temp 98.1 F 08/20/21 07:04 Pulse 99 08/20/21 11:16 Resp 17 08/20/21 11:16 BP 130/76 08/20/21 11:16 Pulse Ox 97 08/20/21 11:16 08/19/21 08/20/21 08/20/21 22:59 06:59 14:59 Intake Total 290 / 770 410 / 410 Output Total 300 / 300 300 / 300 Balance 290 / 770 -300 / 470 110 / 110 Weight last 48 hrs Weight 48.534 kg Weight 48.534 kg Physical Exam Narrative: General well-developed thin cachectic female in no acute cardiopulmonary distress Normocephalic atraumatic, breathing normally on room air no acute respiratory distress. CV regular rate and rhythm Abdomen positive bowel sounds soft nontender Lungs clear to auscultation bilaterally no wheezes no rhonchi Bilateral lower extremity no edema or cyanosis noted. speech is clear [place]-neck deformity of both hands Data : 08/17/21 04:20 08/20/21 03:00 A&P Assessment and plan (1) Depression: Status: Acute (2) Constipation by delayed colonic transit: Status: Acute (3) Hypothyroidism: Status: Acute (4) Hypertension: Status: Acute (5) Rhabdomyolysis: Status: Acute (6) Acute kidney failure, unspecified: Status: Acute (7) Uremic encephalopathy: Status: Acute (8) Dehydration: Status: Acute (9) Elevated CPK: Status: Acute Plan #Acute kidney injury most likely prerenal #Rhabdomyolysis - resoled #Hypertension #Hypothyroidism #Constipation by delayed colonic transit #Depression #UTI #urinary incontinance #Hyponatremia #hypomangasemia #Hypophosphatemia ? DIMPLE resolved. - Stop IV fluids, enourage oral intake. -Hyponatremia improving. ? Hold home antihypertensives alendronate, furosemide, lisinopril hydrochlorothiazide, potassium.? Nephrology is following ? Continue Synthroid ? Continue MiraLAX ? continue mirtazipine 7.5 08/17/21 - continue ceftriaxone for UTI - Relete electrolytes PT OT.? pending placement DNR/DNI DVT prophylaxis Heparin subcu Dysphagia level 1 diet pur?ed Attestations Medical Necessity Statement*: pending placement Coding Level of Care Code Acute Merchandise Buyer for Chg Fwd Diagnoses Depression F32.A Constipation by delayed colonic transit K59.01 Hypothyroidism E03.9 Hypertension I10 Rhabdomyolysis M62.82 Acute kidney failure, unspecified N17.9 Uremic encephalopathy G93.49; N19 Dehydration E86.0 Elevated CPK R74.8
--- NOTE | 2021-08-20 14:30 | P.DS_ITS ---
Discharge Providers Date of Admission: 08/10/21 13:47 Date of Discharge: August 20, 2021 Attending Provider at Admission: Candido Montes MD Attending Provider at Discharge: Jennifer Mullins MD Primary Care Provider: Makayla Lyle MD Diagnoses at Discharge Discharge Diagnosis (1) Depression: Status: Acute (2) Constipation by delayed colonic transit: Status: Acute (3) Hypothyroidism: Status: Acute (4) Hypertension: Status: Acute (5) Rhabdomyolysis: Status: Acute (6) Acute kidney failure, unspecified: Status: Acute (7) Uremic encephalopathy: Status: Acute (8) Dehydration: Status: Acute (9) Elevated CPK: Status: Acute Reason for Visit Reason for Visit: FALL/ FOUND DOWN FOR A WHILE Brief History: As per Dr. Montes Radha Hubbard is a 86 year old female female who lives alone since her 2 years ago.? Initially somewhat depressed she has carried on and her younger cousins through marriage Ed and Corey check on her 1-2 times a week driving in from [place].? Patient has her medication set out by them. ED is the power of litigation attorney and Corey is medical proxy.? Patient has known history of hypertension.? Sometimes she does not take her medications. Patient was found down by family today patient tells me that she was walking bathroom in the night fell and does not know how long ago that was.? She knows that she is in the hospital.? Family members judged by her the fact that she is wearing the same clothes they saw her in last Monday and only 2 sets of dirty bowls for eating cereal that she probably has been down for several days Staff have been unable to get a [place] in the urethra at this time as there is significant atrophy of the introitus. Hospital Course Hospital Course Patient had DIMPLE and rhabdomyolysis on admission. DIMPLE was most likely prerenal. She was followed by nephrology. Given IV fluids. She improved. However patient did not have an appetite. Phosphorus was low and repleted. Once electrolytes repleted patient started eating. Mirtazapine was also added as an appetite stimulant. Patient is doing a lot better now. She is a total assist and will benefit from rehab at this point. Patient also developed a UTI and was completed with the ceftriaxone 1 g x 5-day course. Family was updated very frequently at bedside. Patient is very happy today and appears much better compared to before. She will be discharged to [facility] for rehab in stable condition. Blood pressure has been stable during hospital stay. Medication adjustments were made. Please see attached med rec. Physical Exam Narrative: See today's progress note Discharge Data Studies Completed and Pending Completed Studies During Hospitalization Category Date Time Status CT head wo con* [id number] Urgent Cat Scan 08/10/21 11:01 Completed XR chest 1V portable [id number] Urgent Exams 08/10/21 11:01 Completed XR hip RT 1V wo/w pel [id number] Routine Exams 08/12/21 10:32 Completed US renal BI* [id number] Urgent Ultrasound 08/10/21 17:41 Completed Radiology Impressions Chest X-Ray 08/10/21 11:01 IMPRESSION: No acute findings. Head CT 08/10/21 11:01 IMPRESSION: No acute intracranial abnormality. Renal Ultrasound 08/10/21 17:41 IMPRESSION: Unremarkable kidneys and bladder. Hip X-Ray 08/12/21 10:32 IMPRESSION: No acute osseous pathology. Laboratory Results WBC 4.8 10^3/uL (4.0-10.0) 08/17/21 04:20 RBC 3.60 10^6/uL (4.1-5.3) L 08/17/21 04:20 Hgb 9.9 g/dL (11.5-15.3) L 08/17/21 04:20 Hct 30.6 % (37.0-47.0) L 08/17/21 04:20 MCV 85.0 fl (81-99) 08/17/21 04:20 MCH 27.5 pg (28.0-34.0) L 08/17/21 04:20 MCHC 32.4 g/dL (30.0-36.0) 08/17/21 04:20 RDW 15.6 % (12.1-15.1) H 08/17/21 04:20 Plt Count 173 10^3/cmm (130-400) 08/17/21 04:20 MPV 10.4 fL (7.4-10.4) 08/17/21 04:20 Neut % (Auto) 58.1 % 08/17/21 04:20 Lymph % (Auto) 30.4 % 08/17/21 04:20 [place] % (Auto) 8.8 % 08/17/21 04:20 Eos % (Auto) 1.9 % 08/17/21 04:20 Baso % (Auto) 0.2 % 08/17/21 04:20 Neut # (Auto) 2.77 10^3/uL (1.8-7.7) 08/17/21 04:20 Lymph # (Auto) 1.5 10^3/uL (0.8-4.8) 08/17/21 04:20 [place] # (Auto) 0.4 10^3/uL (0.2-0.9) 08/17/21 04:20 Eos # (Auto) 0.1 10^3/uL (0.0-0.8) 08/17/21 04:20 Baso # (Auto) 0.0 10^3/uL (0.0-0.1) 08/17/21 04:20 Nucleated RBC % (auto) 0 % 08/17/21 04:20 Nucleated RBCs # 0.0 /100WBC 08/17/21 04:20 Sodium 133 mmol/L (136-145) L 08/20/21 03:00 Potassium 3.8 mmol/L (3.5-5.1) 08/20/21 03:00 Chloride 101 mmol/L (98-107) 08/20/21 03:00 Carbon Dioxide 21 mmol/L (22-29) L 08/20/21 03:00 Anion Gap 14.8 (5-19) 08/20/21 03:00 BUN 12 mg/dL (8-23) 08/20/21 03:00 Creatinine 1.0 mg/dL (0.5-0.9) H 08/20/21 03:00 GFR Calculation Not Reportable 08/20/21 03:00 Glucose 80 mg/dL (65-115) 08/20/21 03:00 Calculated Osmolality 275 mOsm/kg (285-295) L 08/20/21 03:00 Lactate 1.5 mmol/L (0.5-2.2) 08/10/21 12:38 Calcium 8.3 mg/dL (8.5-10.5) L 08/20/21 03:00 Phosphorus 3.4 mg/dL (2.5-4.5) 08/20/21 03:00 Magnesium 1.6 mg/dL (1.7-2.3) L 08/20/21 03:00 Total Bilirubin 0.4 mg/dL (0.15-1.2) 08/12/21 04:38 Total Bilirubin Cancelled 08/12/21 04:38 AST 29 U/L (0-32) 08/12/21 04:38 AST Cancelled 08/12/21 04:38 ALT 14 U/L (0-33) 08/12/21 04:38 ALT Cancelled 08/12/21 04:38 Alkaline Phosphatase 45 IU/L (35-105) 08/12/21 04:38 Alkaline Phosphatase Cancelled 08/12/21 04:38 Ammonia 15 umol/L (11-51) 08/10/21 13:55 Creatine Kinase 58 U/L (26-192) 08/16/21 04:02 CK-MB (CK-2) 6.4 ng/mL (0-5.34) H 08/12/21 04:38 CK-MB (CK-2) Rel Index 1.4 % (0.0-10.4) 08/12/21 04:38 Troponin T Gen 5 ng/L 46 ng/L (0-10) H 08/12/21 04:38 Troponin T Baseline 59 ng/L (0-10) H 08/10/21 12:38 Troponin T 120 Minute 60.61 ng/L (0-10) H 08/10/21 14:34 Delta Troponin T 1.61 ABS# (0-10) 08/10/21 14:34 Troponin T Hi Sens 6Hr 57.82 ng/L (0-10) H 08/10/21 17:56 Troponin T Hi Sens 6Hr Delta -1.18 ng/L (0-12) L 08/10/21 17:56 NT-Pro-B Natriuret Pep 2760 pg/mL (0-450) H 08/10/21 12:38 Total Protein 6.0 g/dL (6.6-8.7) L 08/12/21 04:38 Total Protein Cancelled 08/12/21 04:38 Albumin 2.8 g/dL (3.5-5.2) L 08/12/21 04:38 Albumin Cancelled 08/12/21 04:38 Globulin 3.2 g/dL (1.3-4.6) 08/12/21 04:38 Globulin Cancelled 08/12/21 04:38 Lipase 622 U/L (13-60) H 08/12/21 04:38 Lipase Cancelled 08/12/21 04:38 TSH 5.44 uIU/mL (0.27-4.20) H 08/12/21 04:38 TSH Cancelled 08/12/21 04:38 Free T4 0.82 ng/dL (0.82-1.77) 08/10/21 12:38 Urine Color Yellow (Yellow) 08/16/21 04:35 Urine Appearance Cloudy (CLEAR) 08/16/21 04:35 Urine pH 7 (5-7) 08/16/21 04:35 Ur Specific [place] 1.010 (1.005-1.030) 08/16/21 04:35 Urine Protein 1+ (Negative) H 08/16/21 04:35 Urine Glucose (UA) 2+ (Normal) H 08/16/21 04:35 Urine Ketones Negative (Negative) 08/16/21 04:35 Urine Blood 3+ (Negative) H 08/16/21 04:35 Urine Nitrate Positive (Negative) H 08/16/21 04:35 Urine Bilirubin Neg (Negative) 08/16/21 04:35 Urine Urobilinogen 1 mg/dL (Negative) H 08/16/21 04:35 Ur Leukocyte Esterase 2+ (Negative) H 08/16/21 04:35 Urine RBC 0-4 /hpf (0-2) H 08/16/21 04:35 Urine WBC Too numerous to cnt /hpf (0-5) H 08/16/21 04:35 Ur Squamous Epith Cells 0-4 /hpf (0-5) H 08/16/21 04:35 Amorphous Sediment Not Reportable 08/16/21 04:35 Urine Bacteria 4+ /hpf (NONE) H 08/16/21 04:35 Ur Random Sodium 131 mmol/L 08/16/21 04:35 Urine Creatinine 29 mg/dL (28-217) 08/16/21 04:35 Vitals Last Vital Signs Temp 98.1 F 08/20/21 07:04 Pulse 78 08/20/21 14:00 Resp 17 08/20/21 11:16 BP 130/76 08/20/21 11:16 Pulse Ox 97 08/20/21 11:16 Discharge Plan Discharge Patient Disposition: Xfer SNF Condition: Stable Prescriptions: New hydralazine 10 mg Tablet 10 mg PO TID 30 Days Qty: 90 0RF polyethylene glycol 3350 17 gram Powder In Packet 17 g PO BID 30 Days Qty: 30 0RF mirtazapine 15 mg Tablet 7.5 mg PO BEDTIME 30 Days Qty: 30 0RF Continued latanoprost 0.005 % drops 1 drp ophthalmic (eye) BEDTIME 0RF Rx Instructions: (both eyes) levothyroxine [Synthroid] 88 mcg tablet 88 mcg PO DAILY 0RF alendronate 70 mg Tablet 70 mg PO DAILY 0RF Discontinued furosemide [Lasix] 20 mg tablet 10 mg PO QAM 0RF potassium gluconate 600 mg (99 mg) tablet 600 mg PO DAILY 0RF lisinopril-hydrochlorothiazide 20-12.5 mg tablet 1 tab PO BID 0RF Discharge Orders: Discharge Order (Routine); Ordered 08/20/21 Ordered By: Jennifer Mullins Referrals: Makayla Lyle MD [Primary Care Provider] - 4-7 days Discharge Diet: Advance as tolerated Discharge Activity: Increase activity as tolerated Discharge Attestations Time Spent in Discharge Care*: less than 30 min Quality Metrics Clinical Quality Measures [ No reported AMI, CVA or VTE this stay] Coding Level of Care Code Acute Chg FW DC note Diagnoses Depression F32.A Constipation by delayed colonic transit K59.01 Hypothyroidism E03.9 Hypertension I10 Rhabdomyolysis M62.82 Acute kidney failure, unspecified N17.9 Uremic encephalopathy G93.49; N19 Dehydration E86.0 Elevated CPK R74.8
== END 2021-08-20 15:55 | disposition skilled nursing facility (03) | DRG 683 ==
LOC: ER 13:34 → MEDSURG 15:07
PROVIDERS: Internal Medicine Nephrology; Admitting Provider Internal Medicine; Emergency Provider Emergency Medicine; PCP Family Medicine; Visit Provider Internal Medicine
DX: N17.9 Acute kidney failure, unspecified (principal); M62.82 Rhabdomyolysis; G93.49 Other encephalopathy; N39.0 Urinary tract infection, site not specified; E87.1 Hypo-osmolality and hyponatremia; E03.9 Hypothyroidism, unspecified; I11.0 Hypertensive heart disease with heart failure; I50.9 Heart failure, unspecified; F32.A Depression, unspecified; E86.0 Dehydration; K59.01 Slow transit constipation; H91.93 Unspecified hearing loss, bilateral; Z66 Do not resuscitate; R32 Unspecified urinary incontinence; E83.42 Hypomagnesemia; W18.30XA Fall on same level, unspecified, initial encounter
CPT/HCPCS: 36415; 70450; 71045; 73501; 76770; 80048; 80053; 81001; 82140; 82550; 82553; 82575; 83605; 83690; 83735; 83880; 84100; 84300; 84439; 84443; 84484; 85025; 87040; 87077; 87086; 87186; 92526; 92610; 93005; 96372; 97110; 97116; 97161; 97167; 97530; 97535; 99285; J0696; J1644; J2270; J2405; J3475; J7030; J7040; Q3014

== ENCOUNTER 2021-10-17 16:28 | Outpatient (CLI) | payer MEDICARE, SELFPAY ==
[2021-10-17 17:01] LABS: Urine Appearance Hazy (CLEAR); Urine Color Yellow (Yellow)
[2021-10-17 17:02] LABS: Add Urine Microscopic? YES; Bilirubin Urine Neg (Negative); Blood Urine Neg (Negative); Glucose Urine UA Norm (Normal); Ketones Urine Negative (Negative); Leukocyte Esterase Urine Negative (Negative); Nitrate Urine Positive (Negative); Protein Urine Trace (Negative); Urobilinogen Urine Norm (Negative); pH Urine 6 (5-7)
[2021-10-17 17:03] LABS: Add Urine Culture? Yes; Bacteria Urine 4+ /hpf; Mucus Urine TRACE /hpf; Squamous Epithelial Cell Urine 0-4 /hpf (0-5); WBC Urine 0-4 /hpf (0-5)
== END 2021-10-17 16:29 | disposition home or self-care (01) ==
PROVIDERS: PCP Family Medicine; Visit Provider Family Medicine
DX: N39.0 Urinary tract infection, site not specified (principal)
CPT/HCPCS: 81001; 87077; 87086; 87186

== ENCOUNTER 2022-02-18 21:16 | Emergency (ER) | payer MEDICARE, SELFPAY ==
[2022-02-18 21:32] VITALS: BP 186/86; PULSE 98; RESP 18; TEMP 36.8; O2SAT 99; BMI 21.9
--- NOTE | 2022-02-18 21:48 | XRR_ITS ---
PROCEDURE INFORMATION: Exam: XR Chest Exam date and time: 02/18/2022 9:56 PM Age: 86 years old Clinical indication: Shortness of breath and other: Chest pain; Additional info: Chest pain; Shortness of breath TECHNIQUE: Imaging protocol: Radiologic exam of the chest. Views: 1 view. 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 No consolidation. Pleural spaces: Unremarkable. No pleural effusion. No pneumothorax. Heart/Mediastinum: Unremarkable. No cardiomegaly. Vasculature: Diffuse vascular calcification. Bones/joints: Unremarkable. XR/XR chest 1V portable [id number] IMPRESSION: 1. No acute findings. 2. 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
--- NOTE | 2022-02-18 21:49 | ED_ITS ---
Documented by User: Storm Dugan MD 02/18/22 22:44 HPI - SOB/Dyspnea General: Chief Complaint: Shortness of Breath/Dyspnea Stated Complaint: SOB Time Seen by Provider: 02/18/22 21:41 Source: patient and EMS Mode of arrival: EMS Limitations: other (Hard of hearing) History of Present Illness: HPI Narrative: See nursing assessment. Patient with complaints of bilateral chest pain worse with deep breaths. She states she had shortness of breath earlier. She denies any cough or fever. Patient denies any nausea or vomiting. She denies any c hills. She denies any peripheral edema. Associated symptoms: Reports chest pain; Deny abdominal pain, fever(s), nausea, palpitations or vomiting Review of Systems Const: Denies: fever(s) or chills Eyes: Denies: change in vision ENMT: Denies: throat pain Card: Reports: chest pain and edema; Denies: palpitations Resp: Reports: dyspnea and pain on inspiration; Denies: productive cough, non-productive cough or wheezing GI: Denies: abdominal pain, nausea or vomiting : Denies: flank pain Musc: Denies: neck pain or back pain Skin/Breast: Reports: other (Patient has chronic rash of her lower legs and ankles.); Denies: pruritus Neuro: Denies: headache(s) or numbness in extremities Psych: Denies: anxiety Claude/Lymph: Denies: enlarged lymph nodes PFS ED PFSH: Medical History Arthritis, rheumatoid CHF exacerbation Hypertension Hypertension Hypothyroidism Hypothyroidism Social History Smoking and tobacco status: never smoked Alcohol intake: never Physical Exam Const: COMMON NORMALS: no acute distress, patient oriented x3, no limitations and well nourished GENERAL APPEARANCE: cooperative HENMT: COMMON NORMALS: normocephalic and atraumatic HEAD & SCALP: normocephalic and atraumatic FACE & SINUS: normal facial exam Eye: COMMON NORMALS: EOMs intact bilaterally Neck/C-Spine: COMMON NORMALS: full ROM, no lymphadenopathy, supple and no meningeal signs GENERAL: Yes normal visual inspection Lymph: LYMPHATIC: no lymphadenopathy noted Chest: COMMONS NORMALS: normal inspection of the chest and normal palpation of entire chest wall CHEST: No Ecchymosis present and No rash Resp: COMMON NORMALS: normal respiratory effort, No retractions and clear to auscultation bilaterally EFFORT & INSPECTION: No respiratory distress AUSC ULTATION: clear to auscultation bilaterally Cardio: COMMON NORMALS: regular rate, regular rhythm and Peripheral pulses 2+ throughout JUGULAR VENOUS DISTENTION: no JVD RATE: regular rate RHYTHM: regular rhythm PERIPHERAL PULSES: Peripheral pulses 2+ throughout GI: COMMON NORMALS: Normal to inspection, nondistended, normoactive bowel sounds present and non-tender : COMMON NORMALS: Yes no CVA tenderness BLADDER/KIDNEY EXAM: Yes no CVA tenderness Back/Pelvis: COMMON NORMALS: no CVA tenderness Extremity: OTHER: Deformities of the upper hands consistent with rheumatoid arthritis. Patient has mild venous insufficiency rash of the lower legs bilaterally and ankles. Neuro: COMMON NORMALS: patient oriented x3, CN's II-XII intact bilaterally, no focal motor deficits and no sensory deficits noted MENINGEAL SIGNS: Yes no meningeal signs Psych: COMMON NORMALS: mental status grossly normal and Normal thought process present THOUGHT PROCESS: Normal thought process present Skin: COMMON NORMALS: no wounds Course Vital Signs: Vital signs: Vital Signs Temperature 98.2 F 02/18/22 21:32 Pulse Rate 95 02/18/22 23:06 Respiratory Rate 18 02/18/22 23:06 Blood Pressure 160/77 02/18/22 23:06 Pulse Oximetry 99 02/18/22 23:06 Oxygen Delivery Me thod 02/18/22 23:06 MDM - SOB/Dyspnea Medical Decision Making Shortness of breath, chest pain, pleuritic chest pain, history of congestive heart failure 2300: Care transferred to Dr. Larkin at shift change. Lab Data Patient has chronic microcytic anemia 02/18/22 21:01 02/18/22 21:01 Labs/Radiology: Radiology Impressions Chest X-Ray 02/18/22 21:48 IMPRESSION: 1. No acute findings. 2. 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 Laboratory Results WBC 7.2 10^3/uL (4.0-10.0) 02/18/22 21:01 RBC 4.01 10^6/uL (4.1-5.3) L 02/18/22 21:01 Hgb 9.9 g/dL (11.5-15.3) L 02/18/22 21: Hct 32.2 % (37.0-47.0) L 02/18/22 21: MCV 80.3 fl (81-99) L 02/18/22 21: MCH 24.7 pg (28.0-34.0) L 02/18/22 21: MCHC 30.7 g/dL (30.0-36.0) 02/18/22 21: RDW 15.8 % (12.1-15.1) H 02/18/22 21: Plt Count 357 10^3/cmm (130-400) 02/18/22: MPV 9.6 fL (7.4-10.4) 02/18/22 21: Neut % (Auto) 53.3 % 02/18/22 21: Lymph % (Auto) 31.2 % 02/18/22: Real % (Auto) 7.9 % 02/18/22 21: Eos % (Auto) 6.0 % 02/18/22 21: Baso % (Auto) 1.0 % 02/18/22 21: Neut # (Auto) 3.86 10^3/uL (1.8-7.7) 02/18/22: Lymph # (Auto) 2.3 10^3/uL (0.8-4.8) 02/18/22 21: Real # (Auto) 0.6 10^3/uL (0.2-0.9) 02/18/22: Eos # (Auto) 0.4 10^3/uL (0.0-0.8) 02/18/22 21: Baso # (Auto) 0.1 10^3/uL (0.0-0.1) 02/18/22: Nucleated RBC % (auto) 0 % 02/18/22: Nucleated RBCs # 0.0 /100WBC 02/18/22 21: Sodium 135 mmol/L (136-145) L 02/18/22: Potassium 4.5 mmol/L (3.5-5.1) 12/09/22 21:01 Chloride 100 mmol/L (98-107) 02/18/22 21:01 Carbon Dioxide 24 mmol/L (22-29) 02/18/22 21:01 Anion Gap 15.5 (5-19) 02/18/22 21:01 BUN 35 mg/dL (8-23) H 02/18/22 21:01 Creatinine 1.4 mg/dL (0.5-0.9) H 02/18/22 21:01 GFR Calculation Not Reportable 02/18/22 21:01 Glucose 91 mg/dL (65-115) 02/18/22 21:01 Calculated Osmolality 288 mOsm/kg (285-295) 02/18/22 21:01 Calcium 9.6 mg/dL (8.5-10.5) 02/18/22 21:01 Troponin T Baseline 31 ng/L (0-10) H 02/18/22 21:01 Troponin T 120 Minute 32.19 ng/L (0-10) H 02/18/22 23:15 Delta Troponin T 1.19 ABS# (0-10) 02/18/22 23:15 NT-Pro-B Natriuret Pep 469 pg/mL (0-450) H 02/18/22 21:01 Influenza Type A Ag negative (Negative) 02/18/22 21:50 Influenza Type B Ag negative (Negative) 02/18/22 21:50 SARS-CoV-2 Ag (Rapid) negative (Negative) 02/18/22 21:50 Imaging Data CXR: My impression: Nothing acute. No infiltrates or effusions Radiologist's impression: Ordering Provider/Ordering MD: Storm Dugan MD Date of Service: 02/18/22 Procedure(s): XR chest 1V portable [id number] Accession Number(s): [id number] Report Number: [id number] PROCEDURE INFORMATION: Exam: XR Chest Exam date and time: 02/18/2022 9:56 PM Age: 86 years old Clinical indication: Shortness of breath and other: Chest pain; Additional info: Chest pain; Shortness of breath TECHNIQUE: Imaging protocol: Radiologic exam of the chest. Views: 1 view. COMPARISON: CR XR chest 1V portable [id number] 08/10/2021 11:15 AM FINDINGS: Lungs: Mild COPD again seen with diffuse interstitial lung scarring.. No consolidation. Pleural spaces: Unremarkable. No pleural effusion. No pneumothorax. Heart/Mediastinum: Unremarkable. No cardiomegaly. Vasculature: Diffuse vascular calcification. Bones/joints: Unremarkable. XR/XR chest 1V portable [id number] IMPRESSION: 1. No acute findings. 2. 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 ? Dictated By: En Templeton MD Signed By: En Templeton MD Signed Date/Time: 02/18/222218 DD/ 55 EKG Data EKG 1: I personally reviewed and interpreted this EKG as follows: EKG Interpretation Date: 02/18/22 EKG interpretation time: 21:43 Interpretation: Normal sinus rhythm with heart rate 93. Mild left atrial disease. Normal SC interval, normal QT interval, normal ST segment. Normal axis. Normal QRS. Discharge Plan Discharge Patient Disposition: Home Clinical Impression: Breath shortness, Chest pain in adult Condition: Stable Prescriptions: No Action latanoprost 0.005 % drops 1 drp ophthalmic (eye) BEDTIME Rx Instructions: (both eyes) levothyroxine [Synthroid] 88 mcg tablet 88 mcg PO DAILY alendronate 70 mg Tablet 70 mg PO DAILY Discharge Orders: Discharge ED (Routine); Ordered 02/19/22 Ordered By: Aretha Larkin Referrals: Khang Anne DO [Primary Care Provider] - 1-3 days Discharge Diet: Advance as tolerated Discharge Activity: Resume usual activity Patient Instructions: Dyspnea (ED) Coding Level of Care Code ED 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 for Chg Fwd Exam Comprehensive Documented by User: Aretha Larkin MD 02/19/22 00:03 HPI - SOB/Dyspnea General: Chief Complaint: Shortness of Breath/Dyspnea Stated Complaint: SOB Time Seen by Provider: 02/18/22 21:41 PFSH ED PFSH: Medical History Arthritis, rheumatoid CHF exacerbation Hypertension Hypertension Hypothyroidism Hypothyroidism Social History Smoking and tobacco status: never smoked Alcohol intake: never Course Vital Signs: Vital signs: Vital Signs Temperature 98.2 F 02/18/22 21:32 Pulse Rate 95 02/18/22 23:06 Respiratory Rate 18 02/18/22 23:06 Blood Pressure 160/77 02/18/22 23:06 Pulse Oximetry 99 02/18/22 23:06 Oxygen Delivery Me thod 02/18/22 23:06 MDM - SOB/Dyspnea Medical Decision Making Shortness of breath, chest pain, pleuritic chest pain, history of congestive hea rt failure 2300: Care transferred to Dr. Larkin at shift change. Patient presents for shortness of breath along with chest pain from the skilled nursing. She is actually pain-free here states she feels much improved x-ray troponins are normal she is stable for discharge back to the skilled nursing. Lab Data 02/18/22 21:01 02/18/22 21:01 Labs/Radiology: Radiology Impressions Chest X-Ray 02/18/22 21:48 IMPRESSION: 1. No acute findings. 2. 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 Laboratory Results WBC 7.2 10^3/uL (4.0-10.0) 02/18/22 21:01 RBC 4.01 10^6/uL (4.1-5.3) L 02/18/22 21:01 Hgb 9.9 g/dL (11.5-15.3) L 02/18/22 21:01 Hct 32.2 % (37.0-47.0) L 02/18/22 21:01 MCV 80.3 fl (81-99) L 02/18/22 21:01 MCH 24.7 pg (28.0-34.0) L 02/18/22 21:01 MCHC 30.7 g/dL (30.0-36.0) 02/18/22 21:01 RDW 15.8 % (12.1-15.1) H 02/18/22 21:01 Plt Count 357 10^3/cmm (130-400) 02/18/22 21:01 MPV 9.6 fL (7.4-10.4) 02/18/22 21:01 Neut % (Auto) 53.3 % 02/18/22 21: Lymph % (Auto) 31.2 % 02/18/22 21:01 Real % (Auto) 7.9 % 02/18/22 21:01 Eos % (Auto) 6.0 % 02/18/22 21:01 Baso % (Auto) 1.0 % 02/18/22 21: Neut # (Auto) 3.86 10^3/uL (1.8-7.7) 02/18/22 21: Lymph # (Auto) 2.3 10^3/uL (0.8-4.8) 02/18/22 21: Real # (Auto) 0.6 10^3/uL (0.2-0.9) 02/18/22 21: Eos # (Auto) 0.4 10^3/uL (0.0-0.8) 02/18/22 21: Baso # (Auto) 0.1 10^3/uL (0.0-0.1) 02/18/22 21: Nucleated RBC % (auto) 0 % 02/18/22 21: Nucleated RBCs # 0.0 /100WBC 02/18/22 21: Sodium 135 mmol/L (136-145) L 02/18/22 21: Potassium 4.5 mmol/L (3.5-5.1) 02/18/22 21: Chloride 100 mmol/L (98-107) 02/18/22 21: Carbon Dioxide 24 mmol/L (22-29) 02/18/22 21:01 Anion Gap 15.5 (5-19) 02/18/22 21:01 BUN 35 mg/dL (8-23) H 02/18/22 21: Creatinine 1.4 mg/dL (0.5-0.9) H 02/18/22 21: GFR Calculation Not Reportable 02/18/22 21: Glucose 91 mg/dL (65-115) 02/18/22 21: Calculated Osmolality 288 mOsm/kg (285-295) 02/18/22 21: Calcium 9.6 mg/dL (8.5-10.5) 02/18/22 21:01 Troponin T Baseline 31 ng/L (0-10) H 02/18/22 21:01 Troponin T 120 Minute 32.19 ng/L (0-10) H 02/18/22 23:15 Delta Troponin T 1.19 ABS# (0-10) 02/18/22 23:15 NT-Pro-B Natriuret Pep 469 pg/mL (0-450) H 02/18/22 21:01 Influenza Type A Ag negative (Negative) 02/18/22 21:50 Influenza Type B Ag negative (Negative) 02/18/22 21:50 SARS-CoV-2 Ag (Rapid) negative (Negative) 02/18/22 21:50 Discharge Plan Discharge Patient Disposition: Home Clinical Impression: Breath shortness, Chest pain in adult Condition: Stable Prescriptions: No Action latanoprost 0.005 % drops 1 drp ophthalmic (eye) BEDTIME Rx Instructions: (both eyes) levothyroxine [Synthroid] 88 mcg tablet 88 mcg PO DAILY alendronate 70 mg Tablet 70 mg PO DAILY Discharge Orders: Discharge ED (Routine); Ordered 02/19/22 Ordered By: Aretha Larkin Referrals: Khang Anne DO [Primary Care Provider] - 1-3 days Discharge Diet: Advance as tolerated Discharge Activity: Resume usual activity Patient Instructions: Dyspnea (ED) Coding Level of Care Code ED 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 for [place] Fwd Exam Comprehensive
[2022-02-18 21:56] LABS: Basophils # 0.1 10^3/uL (0.0-0.1); Eosinophils # 0.4 10^3/uL (0.0-0.8); Hematocrit 32.2 % (37.0-47.0); Hemoglobin 9.9 g/dL (11.5-15.3); Lymphocytes # 2.3 10^3/uL (0.8-4.8); Lymphocytes % 31.2 %; Mean Corpuscular HGB Conc 30.7 g/dL (30.0-36.0); Mean Corpuscular Hemoglobin 24.7 pg (28.0-34.0); Mean Corpuscular Volume 80.3 fl (81-99); Mean Platelet Volume 9.6 fL (7.4-10.4); Monocytes # 0.6 10^3/uL (0.2-0.9); Monocytes % 7.9 %; Neutrophils # 3.86 10^3/uL (1.8-7.7); Neutrophils % 53.3 %; Nucleated Red Blood Cells % 0 %; Platelet Count 357 10^3/cmm (130-400); Red Blood Count 4.01 10^6/uL (4.1-5.3); Red Cell Distribution Width 15.8 % (12.1-15.1); White Blood Count 7.2 10^3/uL (4.0-10.0)
[2022-02-18 22:00] VITALS: BP 172/73; PULSE 95; RESP 18; O2SAT 99
[2022-02-18 22:11] LABS: Troponin(5th) Baseline 31 ng/L (0-10)
[2022-02-18 22:19] LABS: Anion Gap 15.5 (5-19); Blood Urea Nitrogen 35 mg/dL (8-23); Calcium 9.6 mg/dL (8.5-10.5); Carbon Dioxide 24 mmol/L (22-29); Chloride 100 mmol/L (98-107); Glucose 91 mg/dL (65-115); NT Pro B Type Natriuretic Pept 469 pg/mL (0-450); Osmolality Calculated 288 mOsm/kg (285-295); Potassium 4.5 mmol/L (3.5-5.1); Sodium 135 mmol/L (136-145)
[2022-02-18 22:26] LABS: Influenza A by IFA negative (Negative); Influenza B by IFA negative (Negative)
[2022-02-18 22:28] LABS: SARS Covid-2 Antigen negative (Negative)
[2022-02-18 23:06] VITALS: BP 160/77; PULSE 95; RESP 18; O2SAT 99
[2022-02-18 23:51] LABS: Troponin 5 2HR 32.19 ng/L (0-10); Troponin 5 2HR Delta 1.19 ABS# (0-10)
[2022-02-19 00:29] VITALS: BP 165/84; PULSE 95; RESP 22; O2SAT 96
== END 2022-02-19 00:31 | disposition home or self-care (01) ==
PROVIDERS: Family Medicine; Emergency Provider Emergency Medicine; PCP Family Medicine
DX: R06.02 Shortness of breath (principal); I11.0 Hypertensive heart disease with heart failure; I50.9 Heart failure, unspecified; Z20.822 Contact with and (suspected) exposure to COVID-19
CPT/HCPCS: 36415; 71045; 80048; 83880; 84484; 85025; 87040; 87426; 87804; 99284

== ENCOUNTER 2022-07-17 15:11 | Outpatient (CLI) | payer MEDICARE, SELFPAY ==
[2022-07-17 16:03] LABS: Add Urine Microscopic? YES; Bilirubin Urine Neg (Negative); Blood Urine Neg (Negative); Glucose Urine UA Norm (Normal); Ketones Urine Negative (Negative); Leukocyte Esterase Urine Negative (Negative); Nitrate Urine Negative (Negative); Protein Urine Neg (Negative); Specific Gravity, Urine 1.015 (1.005-1.030); Urine Appearance Hazy (CLEAR); Urine Color Yellow (Yellow); Urobilinogen Urine Norm (Negative); pH Urine 5 (5-7)
[2022-07-17 16:08] LABS: Add Urine Culture? No; Bacteria Urine 3+ /hpf; Squamous Epithelial Cell Urine 0-4 /hpf (0-5); WBC Urine 0-4 /hpf (0-5)
== END 2022-07-17 15:12 | disposition home or self-care (01) ==
LOC: LAB 15:13
PROVIDERS: PCP Family Medicine; Visit Provider Family Medicine
DX: N39.0 Urinary tract infection, site not specified (principal)
CPT/HCPCS: 81001; 87077; 87086; 87186

== ENCOUNTER 2022-09-11 06:17 | Emergency (ER) | payer MEDICARE, SELFPAY ==
[2022-09-11 06:19] VITALS: BP 159/86; PULSE 90; RESP 20; TEMP 36.5; O2SAT 97; BMI 21.9
--- NOTE | 2022-09-11 06:32 | CTR_ITS ---
PROCEDURE INFORMATION: Exam: CT Head Without Contrast Exam date and time: 09/11/2022 6:45 AM Age: 87 years old Clinical indication: Injury or trauma; Fall; Blunt trauma (contusions or hematomas); Without loss of consciousness TECHNIQUE: Imaging protocol: Computed tomography of the head without contrast. Radiation optimization: All CT scans at this facility use at least one of these dose optimization techniques: automated exposure control; mA and/or kV adjustment per patient size (includes targeted exams where dose is matched to clinical indication); or iterative reconstruction. REPORTING DATA: Count of CT and Cardiac NM exams in prior 12 months: This patient has received 0 known CTs and 0 known cardiac nuclear medicine studies in the 12 months prior to the current study. COMPARISON: CT head wo con* [id number] 08/10/2021 11:40 AM RADIATION DOSE METRICS: Total DLP (mGy-cm): 1095.45 FINDINGS: Brain: No acute intracranial hemorrhage or mass effect. There is decreased attenuation in the periventricular white matter, likely from microvascular disease. No definite acute infarct by CT. Cerebral ventricles: Ventricle size is normal for age. Paranasal sinuses: Minimal mucosal thickening in the maxillary, sphenoid, and ethmoid sinuses. Mastoid air cells: No significant acute finding. Bones/joints: No definite acute skull fracture. Soft tissues: No significant acute finding. Vasculature: Vascular calcifications in the internal carotid arteries. CT/CT head wo con* [id number] IMPRESSION: 1. No acute intracranial hemorrhage or mass effect. 2. Changes of microvascular disease. 3. Other findings discussed above.
--- NOTE | 2022-09-11 06:45 | W.ED.FALL ---
HPI - Fall General: Chief Complaint: Fall Stated Complaint: fall Time Seen by Provider: 09/11/22 06:31 Source: EMS Mode of arrival: EMS Limitations: altered mental status History of Present Illness: 87-year-old female who is here from [facility]. Per EMS shelter staff found her in the floor. Per EMS patient will tell you her name but otherwise is unsure the year. EMS states they asked the shelter staff what her baseline was and they told EMS that they do not know that there the night staff and she sleeps all night and they do not know what she is normally like. Patient here has no complaints of pain she is able to tell me her name does not answers most questions does not know the year. Review of Systems General: Reports: ROS unobtainable due to mental status PFSH ED PFSH: Medical History Arthritis, rheumatoid CHF exacerbation Hypertension Hypertension Hypothyroidism Hypothyroidism Social History Smoking and tobacco status: never smoked Alcohol intake: never Substance/Drug Use: never Physical Exam Const: COMMON NORMALS: no acute distress and healthy appearing; negative for patient oriented x3 HENMT: COMMON NORMALS: normocephalic and atraumatic HEAD & SCALP: normocephalic and atraumatic Eye: COMMON NORMALS: Equal, round and reactive pupils present and EOMs intact bilaterally PUPIL: Yes Equal, round and reactive pupils present Neck/C-Spine: COMMON NORMALS: full ROM and supple Chest: COMMONS NORMALS: normal inspection of the chest and normal palpation of entire chest wall Resp: COMMON NORMALS: normal respiratory effort, No retractions, No use of accessory muscles and clear to auscultation bilaterally AUSCULTATION: clear to auscultation bilaterally Cardio: COMMON NORMALS: regular rate, regular rhythm and No murmurs present (Cardio) RATE: regular rate RHYTHM: regular rhythm GI: COMMON NORMALS: Normal to inspection, nondistended, normoactive bowel sounds present, Soft to palpation, non-tender and no masses PALPATION: Yes Soft to palpation Extremity: COMMON NORMALS: normal to inspection and full ROM Neuro: COMMON NORMALS: moves all extremities and no focal motor deficits; negative for patient oriented x3 Psych: COMMON NORMALS: Normal thought process present and cooperative; negative for mental status grossly normal THOUGHT PROCESS: Normal thought process present Skin: COMMON NORMALS: no rashes or lesions noted and no wounds GENERAL SKIN EXAM: no rashes or lesions noted Course Vital Signs: Vital signs: Vital Signs Temperature 97.7 F 09/11/22 06:19 Pulse Rate 64 09/11/22 06:46 Respiratory Rate 14 09/11/22 06:46 Blood Pressure 132/95 09/11/22 06:46 Pulse Oximetry 96 09/11/22 06:46 Oxygen Delivery Me thod Room Air 09/11/22 06:46 MDM - Fall Medical Decision Making Patient presents here from shelter after a fall CT head blood work here is all normal she is well-appearing here did speak to home who does know patient better and states that she seems to be at her baseline from what I am describing she is stable for discharge back to [facility] Medical Records I reviewed the patient's medical records. Lab Data I reviewed the patient's lab results. 09/11/22 07:14 09/11/22 07:[address] 09/11/22 06:32 IMPRESSION: 1. No acute intracranial hemorrhage or mass effect. 2. Changes of microvascular disease. 3. Other findings discussed above. Laboratory Results WBC 6.0 10^3/uL (4.0-10.0) 09/11/22 07:14 RBC 4.48 10^6/uL (4.1-5.3) 09/11/22 07:14 Hgb 11.1 g/dL (11.5-15.3) L 09/11/22 07:14 Hct 35.5 % (37.0-47.0) L 09/11/22 07:14 MCV 79.2 fl (81-99) L 09/11/22 07:14 MCH 24.8 pg (28.0-34.0) L 09/11/22 07:14 MCHC 31.3 g/dL (30.0-36.0) 09/11/22 07:14 RDW 15.0 % (12.1-15.1) 09/11/22 07:14 Plt Count 321 10^3/cmm (130-400) 09/11/22 07:14 MPV 8.9 fL (7.4-10.4) 09/11/22 07:14 Neut % (Auto) 50.9 % 09/11/22 07:14 Lymph % (Auto) 31.6 % 09/11/22 07:14 [place] % (Auto) 8.5 % 09/11/22 07:14 Eos % (Auto) 7.8 % 09/11/22 07:14 Baso % (Auto) 1.0 % 09/11/22 07:14 Neut # (Auto) 3.07 10^3/uL (1.8-7.7) 09/11/22 07:14 Lymph # (Auto) 1.9 10^3/uL (0.8-4.8) 09/11/22 07:14 [place] # (Auto) 0.5 10^3/uL (0.2-0.9) 09/11/22 07:14 Eos # (Auto) 0.5 10^3/uL (0.0-0.8) 09/11/22 07:14 Baso # (Auto) 0.1 10^3/uL (0.0-0.1) 09/11/22 07:14 Nucleated RBC % (auto) 0 % 09/11/22 07:14 Nucleated RBCs # 0.0 /100WBC 09/11/22 07:14 Sodium 136 mmol/L (136-145) 09/11/22 07:14 Potassium 4.6 mmol/L (3.5-5.1) 09/11/22 07:14 Chloride 101 mmol/L (98-107) 09/11/22 07:14 Carbon Dioxide 25 mmol/L (22-29) 09/11/22 07:14 Anion Gap 14.6 (5-19) 09/11/22 07:14 BUN 41 mg/dL (8-23) H 09/11/22 07:14 Creatinine 1.0 mg/dL (0.5-0.9) H 09/11/22 07:14 GFR Calculation Not Reportable 09/11/22 07:14 Glucose 91 mg/dL (65-115) 09/11/22 07:14 Calculated Osmolality 292 mOsm/kg (285-295) 09/11/22 07:14 Calcium 9.8 mg/dL (8.5-10.5) 09/11/22 07:14 Total Bilirubin 0.3 mg/dL (0.15-1.2) 09/11/22 07:14 AST 19 U/L (0-32) 09/11/22 07:14 ALT 11 U/L (0-33) 09/11/22 07:14 Alkaline Phosphatase 69 U/L (35-105) 09/11/22 07:14 Total Protein 8.0 g/dL (6.6-8.7) 09/11/22 07:14 Albumin 3.7 g/dL (3.5-5.2) 09/11/22 07:14 Globulin 4.3 g/dL (1.3-4.6) 09/11/22 07:14 Discharge Plan Discharge Patient Disposition: Home Clinical Impression: Fall Condition: Stable Prescriptions: No Action alprazolam 0.5 mg tablet 0.5 mg PO BID Qty: 60 2RF Rx Instructions: TAKE 1 TABLET BY MOUTH EVERY 12 HOURS NEEDED FOR ANXIETY nitrofurantoin monohyd/m-cryst [Macrobid] 100 mg capsule 100 mg PO Q12H 7 Days Qty: 14 0RF Rx Instructions: must administer with a meal/food latanoprost 0.005 % drops 1 drp ophthalmic (eye) BEDTIME Rx Instructions: (both eyes) levothyroxine [Synthroid] 88 mcg tablet 88 mcg PO DAILY alendronate 70 mg Tablet 70 mg PO DAILY Discharge Orders: Discharge ED (Routine); Ordered 09/11/22 Ordered By: Aretha Larkin Referrals: Khang Anne DO [Primary Care Provider] - Discharge Diet: Advance as tolerated Discharge Activity: Resume usual activity Patient Instructions: Fall Prevention (ED) Coding Level of Care Code ED Machine Sorter for Tyron Shine
[2022-09-11 06:46] VITALS: BP 132/95; PULSE 64; RESP 14; O2SAT 96
[2022-09-11 07:21] LABS: Basophils # 0.1 10^3/uL (0.0-0.1); Eosinophils # 0.5 10^3/uL (0.0-0.8); Eosinophils % 7.8 %; Hematocrit 35.5 % (37.0-47.0); Hemoglobin 11.1 g/dL (11.5-15.3); Lymphocytes # 1.9 10^3/uL (0.8-4.8); Lymphocytes % 31.6 %; Mean Corpuscular HGB Conc 31.3 g/dL (30.0-36.0); Mean Corpuscular Hemoglobin 24.8 pg (28.0-34.0); Mean Corpuscular Volume 79.2 fl (81-99); Mean Platelet Volume 8.9 fL (7.4-10.4); Monocytes # 0.5 10^3/uL (0.2-0.9); Monocytes % 8.5 %; Neutrophils # 3.07 10^3/uL (1.8-7.7); Neutrophils % 50.9 %; Nucleated Red Blood Cells % 0 %; Platelet Count 321 10^3/cmm (130-400); Red Blood Count 4.48 10^6/uL (4.1-5.3)
[2022-09-11 07:42] LABS: Alanine Aminotransferase 11 U/L (0-33); Albumin Level 3.7 g/dL (3.5-5.2); Alkaline Phosphatase 69 U/L (35-105); Anion Gap 14.6 (5-19); Aspartate Amino Transferase 19 U/L (0-32); Blood Urea Nitrogen 41 mg/dL (8-23); Calcium 9.8 mg/dL (8.5-10.5); Carbon Dioxide 25 mmol/L (22-29); Chloride 101 mmol/L (98-107); Globulin 4.3 g/dL (1.3-4.6); Glucose 91 mg/dL (65-115); Osmolality Calculated 292 mOsm/kg (285-295); Potassium 4.6 mmol/L (3.5-5.1); Sodium 136 mmol/L (136-145); Total Bilirubin 0.3 mg/dL (0.15-1.2)
== END 2022-09-11 08:39 | disposition home or self-care (01) ==
PROVIDERS: Emergency Provider Emergency Medicine; PCP Family Medicine
DX: R41.82 Altered mental status, unspecified (principal); I11.0 Hypertensive heart disease with heart failure; I50.9 Heart failure, unspecified; W19.XXXA Unspecified fall, initial encounter; Y92.129 Unspecified place in nursing home as the place of occurrence of the external cause
CPT/HCPCS: 36415; 70450; 80053; 85025; 99284

== ENCOUNTER 2023-05-26 09:32 | Outpatient (CLI) | payer MEDICARE, SELFPAY ==
[2023-05-26 09:59] LABS: Basophils # 0.1 10^3/uL (0.0-0.1); Basophils % 0.9 %; Eosinophils # 0.6 10^3/uL (0.0-0.8); Eosinophils % 7.9 %; Hematocrit 33.8 % (36-47); Lymphocytes % 26.7 %; Mean Corpuscular HGB Conc 31.7 g/dL (30-55); Mean Corpuscular Volume 82.2 fl (85-98); Mean Platelet Volume 9.5 fL (7.4-10.4); Monocytes # 0.7 10^3/uL (0.2-0.9); Neutrophils # 4.11 10^3/uL (1.8-7.7); Neutrophils % 55.2 %; Nucleated Red Blood Cells % 0 %; Platelet Count 284 10^3/cmm (157-399); Red Blood Count 4.11 10^6/uL (3.85-5.65); Red Cell Distribution Width 15.1 % (12.1-15.1); White Blood Count 7.45 10^3/uL (3.29-11.43)
[2023-05-26 10:24] LABS: Alanine Aminotransferase 10 U/L (0-33); Albumin Level 3.5 g/dL (3.5-5.2); Alkaline Phosphatase 65 U/L (35-105); Anion Gap 15.4 (5-19); Aspartate Amino Transferase 16 U/L (0-32); Blood Urea Nitrogen 28 mg/dL (8-23); Carbon Dioxide 24 mmol/L (22-29); Chloride 101 mmol/L (98-107); Globulin 3.5 g/dL (1.3-4.6); Glucose 84 mg/dL (65-115); Osmolality Calculated 287 mOsm/kg (285-295); Potassium 4.4 mmol/L (3.5-5.1); Sodium 136 mmol/L (136-145); Total Bilirubin 0.4 mg/dL (0.15-1.2)
== END 2023-05-26 09:33 | disposition home or self-care (01) ==
PROVIDERS: PCP Family Medicine; Visit Provider Family Medicine
DX: I10 Essential (primary) hypertension (principal)
CPT/HCPCS: 80053; 85025

== ENCOUNTER 2023-10-07 10:51 | Outpatient (CLI) | payer MEDICARE, SELFPAY ==
[2023-10-07 11:20] LABS: Add Urine Microscopic? NO; Charge for UA Resulting for Rev
[2023-10-07 11:36] LABS: Bilirubin Urine Neg (Negative); Blood Urine Neg (Negative); Glucose Urine UA Norm (Normal); Ketones Urine Negative (Negative); Leukocyte Esterase Urine Negative (Negative); Nitrate Urine Negative (Negative); Protein Urine Neg (Negative); Urine Appearance Clear (CLEAR); Urine Color Yellow (Yellow); Urobilinogen Urine Norm (Negative); pH Urine 7 (5-7)
== END 2023-10-07 10:52 | disposition home or self-care (01) ==
LOC: LAB 10:56
PROVIDERS: PCP Family Medicine; Visit Provider Family Medicine
DX: N39.0 Urinary tract infection, site not specified (principal)
CPT/HCPCS: 81003; 87086

== ENCOUNTER 2023-11-17 16:58 | Outpatient (CLI) | payer MEDICARE, SELFPAY ==
[2023-11-17 17:04] LABS: Charge for UA Resulting for Rev
[2023-11-17 19:09] LABS: Bilirubin Urine Neg (Negative); Blood Urine Neg (Negative); Glucose Urine UA Norm (Normal); Hyaline Casts Urine 0.4 /lpf; Ketones Urine Negative (Negative); Leukocyte Esterase Urine Negative (Negative); Nitrate Urine Negative (Negative); Protein Urine Neg (Negative); Specific Gravity, Urine 1.019 (1.005-1.030); Squamous Epithelial Cell Urine 0-4 /hpf (0-5); Urine Appearance Clear (CLEAR); Urine Color Yellow (Yellow); WBC Urine 0-4 /hpf (0-5)
== END 2023-11-17 16:59 | disposition home or self-care (01) ==
LOC: LAB 17:00
PROVIDERS: PCP Family Medicine; Visit Provider Family Medicine
DX: N39.0 Urinary tract infection, site not specified (principal)
CPT/HCPCS: 81003; 81015; 87086

== ENCOUNTER 2024-01-01 09:37 | Outpatient (CLI) | payer MEDICARE, SELFPAY ==
[2024-01-01 09:58] LABS: Bilirubin Urine Negative (Negative); Blood Urine Negative (Negative); Glucose Urine UA Negative (Normal); Ketones Urine Negative (Negative); Leukocyte Esterase Urine Negative (Negative); Nitrate Urine Negative (Negative); Protein Urine Negative (Negative); Specific Gravity, Urine 1.023 (1.005-1.030); Urine Appearance Clear (CLEAR); Urine Color Yellow (Yellow); Urobilinogen Urine 0.2 mg/dL (Negative); pH Urine 5.5 (5-7)
[2024-01-01 10:04] LABS: Add Urine Microscopic? YES; Bacteria Urine None Seen /hpf; Hyaline Casts Urine 1.65 /lpf; RBC Urine 0-2 /hpf (0-2); Squamous Epithelial Cell Urine 0-5 /hpf (0-5); WBC Urine 0-5 /hpf (0-5)
== END 2024-01-01 09:38 | disposition home or self-care (01) ==
PROVIDERS: PCP Family Medicine; Visit Provider Family Medicine
DX: N39.0 Urinary tract infection, site not specified (principal)
CPT/HCPCS: 81001; 87086

== ENCOUNTER 2024-07-07 14:24 | Outpatient (CLI) | payer OTHER, SELFPAY ==
[2024-07-07 14:48] LABS: Bilirubin Urine Negative (Negative); Blood Urine Negative (Negative); Glucose Urine UA Negative (Normal); Ketones Urine Negative (Negative); Leukocyte Esterase Urine 2+ (Negative); Nitrate Urine Negative (Negative); Protein Urine Negative (Negative); Specific Gravity, Urine 1.021 (1.005-1.030); Urine Appearance Cloudy (CLEAR); Urine Color Yellow (Yellow); pH Urine 6.5 (5-7)
[2024-07-07 14:55] LABS: Add Urine Microscopic? YES; Bacteria Urine None Seen /hpf; Hyaline Casts Urine 0.81 /lpf; Squamous Epithelial Cell Urine 0-5 /hpf (0-5); WBC Urine 21-50 /hpf (0-5)
== END 2024-07-07 14:25 | disposition home or self-care (01) ==
LOC: LAB 14:26
PROVIDERS: PCP Family Medicine; Visit Provider Family Medicine
DX: R41.82 Altered mental status, unspecified (principal)
CPT/HCPCS: 81001; 87086